=== PATIENT | male | born 1945 | race Caucasian/White ===

== ENCOUNTER 2023-08-21 08:16 | Inpatient (IN) | payer MEDICARE, SELFPAY ==
[2023-08-21] VITALS (203 sets, daily range): BP systolic 67–134; BP diastolic 20–89; PULSE 56–123; RESP 12–38; TEMP 36.6–38.3; O2SAT 88–100
--- NOTE | 2023-08-21 08:00 | RT.EKG_ITS ---
APPROVED REPORT Exam: Resting ECG Reason for Exam: SOB Patient Location: E HR:101 bpm ECG Measurements Heart Rate 101 AXIS LA 131 P 51 QRSd 92 QRS 40 QT 331 T 34 QTc 429 Conclusion Sinus tachycardia...rate> 99 Ventricular premature complex...V complex w/ short R-R interval Aberrant conduction of SV complex(es)...aberrant shape, LA 80-220 Probable left atrial enlargement...P >50mS, <-0.10mV V1
--- NOTE | 2023-08-21 08:15 | DI.CT_ITS ---
Exam(s) CT THORAX ABD/PEL CTA EXAM: CT THORAX ABD/PEL CTA CLINICAL HISTORY: chest paijn, sob, upper abd pain. TECHNIQUE: Imaging Protocol: Axial CT angiography was performed with multi-slice acquisition and m ulti-planar and/or 3D reconstructions. CONTRAST MATERIAL: Intravenous: Omnipaque 350 contrast volume:100 mL Oral: No COMPARISON: No exams were available for comparison FINDINGS: The examination is limited due to patient motion artifact. CHEST: Tracheobronchial tree: Patent where visualized. Pulmonary parenchyma: Mild centrilobular emphysematous changes are present. Atelectatic changes are seen in the dependent portions of the lungs. There is an infiltrate seen in the posterior aspect of the right lower lobe. There is also an infiltrate seen in the left lower lobe. There is scarring se en in the right upper and right middle lobes. Pulmonary Arteries: No evidence of filling defect to suggest pulmonary emboli. Mediastinum and Erinn: No dominant adenopathy or fluid collection. The esophagus is unremarkable. Visualized thyroid: Unremarkable. Pleura: There are small bilateral pleural effusions. No pneumothoraces are identified. Heart: Cardiomegaly. Coronary artery calcifications are present. No pericardial effusion. Aorta: Thoracic aorta non-dilated. No evidence of dissection. Atherosclerotic calcification is prese nt. Soft Tissues: Mild gynecomastia. Bones: Within normal limits for the patient's age. ABDOMEN AND PELVIS: Abdomen: Celiac axis/mesenteric arteries: No evidence of occlusion or significant stenosis. Atherosclerotic c alcification is seen at the origins of the celiac axis and superior mesenteric artery. Renal Arteries: No evidence of occlusion or significant stenosis. There is atherosclerosis seen at t he origins of the renal arteries, left greater than right. Aorta: The patient has an infrarenal abdominal aortic aneurysm measuring 4.9 x 5.3 cm. There is mur al thrombus present. There is no evidence of dissection. Pelvis: Iliac Arteries: No evidence of occlusion or significant stenosis. Atherosclerotic calcification is noted. Common Femoral Arteries: No evidence of occlusion or significant stenosis. Atherosclerotic calcific ation is present. ABDOMEN: Liver: There is heterogeneous enhancement of the liver suggesting fatty infiltration. The liver is en larged. No measurable mass. Gallbladder and Biliary Tract: Gallbladder is contracted there do appear to be stones within the gall bladder (series 12, image 600). There is no biliary ductal dilatation. Pancreas: The pancreas is heterogeneous in enhancement particularly involving the head and proximal b husam. There is a large amount of fluid around the pancreas. No definite focal in capsulated fluid valeria ection is seen to suggest an abscess. Spleen: Normal. Adrenals: No masses seen. Kidneys: Normal size, contour and axis. No radiodense stones or obstructive uropathy. No masses seen. Bowel: There is diverticulosis of the colon without evidence of acute diverticulitis. There is no thelma dence of bowel obstruction or bowel wall thickening. There is a small air collection superior to the proximal duodenum which may represent a a diverticulum. Ulcer cannot be entirely excluded. There is n o evidence of appendicitis. Peritoneal Cavity: There is a small amount of perisplenic ascites. There is a small to moderate amoun t of pelvic ascites. No free air. Lymph Nodes: Within normal limits. Bones: Within normal limits for the patient's age. Soft Tissues: There is a small right inguinal hernia containing an unremarkable loop of bowel. There is a small fat containing paraumbilical hernia. There is mild subcutaneous edema in the abdominal wal l. PELVIS: Bladder: A Webb catheter is seen in the decompressed urinary bladder. There is air seen in the depen dent portion of the urinary bladder likely reflecting recent catheterization. Reproductive Organs: Unremarkable as visualized. Lymph Nodes: Within normal limits. Bones: Within normal limits for the patient's age. IMPRESSION: 1. Heterogeneous pancreas with a large amount appear appear created fluid. The findings are suspiciou s for acute pancreatitis. Due to the heterogeneity of the pancreas, necrotizing pancreatitis cannot b e considered. No focal fluid collection is seen to suggest an abscess. 2. Small to moderate amount of abdominal ascites. 3. Small bilateral pleural effusions and subjacent infiltrates which may represent atelectasis or pne umonia. 4. Small air collection superior to the proximal duodenum which may represent a diverticulum. Ulcer c annot be entirely excluded. 5. No evidence of a pulmonary embolism or thoracic aortic dissection. 6. Infrarenal abdominal aortic aneurysm without evidence of dissection. 7. Findings were discussed with Dr. Mcmanus at 11 a.m. on 08/21/2023. RADIATION DOSE DELIVERED: 1,214.7mGy.cm Total DLP DATA REPOSITORY: All CT scans at this facility are submitted to the National Radiology Data Registry (NRDR) Dose Index Registry (DIR) with the [employer] (ACR). RADIATION OPTIMIZATION: All CT scans at this facility use at least one of these dose optimization te chniques: automated exposure control; mA and/or kV adjustment per patient size (includes targeted exa ms where dose is matched to clinical indication); or iterative reconstruction.
[2023-08-21] MEDS: Lactated Ringers 500 ML 1000 ML IV ×2 (08:25→13:22)
[2023-08-21 08:26] LABS: HCT 36.4 % (40.0-50.0); HGB 12.5 g/dL (13.5-17.5); MCH 31.3 pg (27.0-33.0); MCHC 34.3 % (32.0-36.0); MCV 91 fL (80-95); MPV 10.5 fL (8.0-11.0); Platelet Count 225 10^3/uL (130-400); RBC 3.99 10^6/uL (4.36-5.78); RDW 12.4 % (11.8-14.1); RDW-SD 41.9 fL; WBC 8.43 10^3/uL (4.4-10.8)
--- NOTE | 2023-08-21 08:30 | W.ED.GENAD ---
Discharge Plan Disposition Patient Disposition: Admit to [facility] Condition: Critical Discharge Details Clinical Impression: Septic shock, Pancreatitis, Pneumonia Admit Date/Time: 08/21/23 11:57 Admit Provider: Tommy Meier Attending Provider: Tommy Meier Primary Care Provider: Joe Mckinnon ED Provider: Ryan Mcmanus [facility] General Mode of arrival: ambulatory. Date/Time Provider Initiated Documentation: 08/21/23 08:19. Limitations to Documentation: altered mental status. Information obtained by: patient and EMS. HPI Narrative: 77-year-old male with multimedical problems including history of pancreatitis with necrosis, supraventricular tachycardia, Parkinson's disease, hyperlipidemia, COPD, hypertension, tobacco use, aortic aneurysm, here with chief complaint of chest pain. Patient notes dull chest pain developed around 730 this morning and has persisted. Pain is severe. He has associated shortness of breath. Patient was hypoxic per EMS and started on 3 L of oxygen. He does have a history of obstructive sleep apnea and COPD but is not typically on oxygen. Patient also notes upper abdominal pain. Related Data Home Medications Medication Instructions Recorded Confirmed acetaminophen 325 mg capsule 325 mg PO ONCE PRN 08/21/23 08/21/23 aspirin 81 mg tablet,delayed 81 mg PO DAILY 08/21/23 08/21/23 release atorvastatin 10 mg tablet 10 mg PO DAILY 08/21/23 08/21/23 bisoprolol fumarate 5 mg tablet 5 mg PO DAILY 08/21/23 08/21/23 hydromorphone 2 mg tablet 2 mg PO Q4H PRN 08/21/23 08/21/23 (Dilaudid) lisinopril 10 mg tablet 10 mg PO DAILY 08/21/23 08/21/23 Allergies Allergy/AdvReac Type Severity Reaction Status Date / Time No Known Allergies Allergy Unverified 08/21/23 11:14 General Stated Complaint: Chest Pain SANDIP: 2 Review of Systems All systems reviewed & are unremarkable except as noted in HPI and below Constitutional Constitutional: Denies fever(s) Cardiovascular Cardiovascular: Reports as per HPI Gastrointestinal Gastrointestinal: Reports as per HPI Exam Const General: cooperative and uncomfortable Orientation: alert, awake, oriented to person, oriented to time and confused HENMT Mouth: mucous membranes dry Eyes Conjunctivae: normal conjunctivae Sclera: normal sclerae EOM: EOM intact bilaterally Neck Neck: trachea midline and supple Resp Auscultation: clear to auscultation bilaterally, diminished lung sounds, no rales, no rhonchi and no wheezes Cardio Rate: tachycardic Rhythm: regular rhythm GI Inspection: distended Palpation: soft, not firm, no guarding, no masses, not rigid and tender in the epigastrum Skin General skin exam: no rashes or lesions noted Neuro General: patient alert, patient awake, oriented Patient Orientation: Person and Confused and tone normal Other: Page equally Extrem General: no edema Course Vital Signs Vital signs: Vital Signs Temperature 38.3 C H 08/21/23 08:10 Pulse 99 H 08/21/23 08:10 Respiratory Rate 36 H 08/21/23 08:10 Blood Pressure 87/31 L 08/21/23 08:10 Pulse Oximetry 95 08/21/23 08:10 Temperature 38.3 C H 08/21/23 08:10 Temperature Source Temporal Artery Scan 08/21/23 08:10 Pulse 99 H 08/21/23 08:10 Respiratory Rate 34 H 08/21/23 08:19 Respiratory Effort Short of Breath 08/21/23 08:19 Respiratory Depth Deep 08/21/23 08:19 Respiratory Pattern Irregular 08/21/23 08:19 Blood Pressure 87/31 L 08/21/23 08:10 Pulse Oximetry 95 08/21/23 08:10 Oxygen Delivery Method Nasal Cannula 08/21/23 08:10 Oxygen Flow Rate 2.5 08/21/23 08:10 Pain Level 5 08/21/23 08:10 Procedures Central Line Placement Right IJ: Time Out Performed: Yes Patient Placed on Monitor/Pulse Ox: Yes MD Prep: mask, gown and gloves Central Line Prep: Chlorhexidine scrub and sterile drapes applied Local Anesthetic: Lidocaine 1% Amount of anesthesia used (mL): 2 Ultrasound Used for Placement: Yes Central Line Lumen Inserted: triple Post Procedure: good blood return, all ports aspirated, flushed, capped and sutured in place with 3-0 nylon Post Procedure X-Ray: tip of catheter in good position Patient Tolerated Procedure: well Complications: none Medical Decision Making 834?-77-year-old male with multiple medical problems including history of COPD, hypertension, hyperlipidemia, pancreatitis, abdominal aneurysm, here with retrosternal chest pain and shortness of breath with hypoxia as well as upper abdominal pain since 730 this morning. Concern for ACS. EKG was reviewed and interpreted by me: Sinus tachycardia 101 bpm, PVCs noted, some artifact. Will check troponin. Concern for acute CHF and will check BNP. Consider acute thoracic dissection and pulmonary embolism. Plan to obtain CT of the chest. Given upper abdominal pain and history of abdominal aneurysm and pancreatitis were also obtain CTA of the abdomen and pelvis. Consider acute pancreatitis. I will check LFTs and lipase. Patient is hypotensive and tachycardic. I will give IV fluid bolus and plan to reassess closely. 930 -- Patient more hypotensive despite IV fluid bolus. Systolic in the 60s. Patient mentation unchanged. Second IV has been established and norepinephrine infusion ordered. Initial labs reviewed: Lactic acidosis noted. No leukocytosis. Creatinine 1.4 but normal GFR. Transaminitis noted. Mildly elevated lipase. BNP elevated. Initial troponin negative. Plan to proceed with CT imaging at this time. Discussed resuscitation status with the patient: Requests CPR, no ventilator. --Patient reassessed multiple times and norepinephrine infusion titrated up. 1130 --Central line was placed right IJ without complications. CTA of the thorax, abdomen pelvis interpreted by radiology:1. Heterogeneous pancreas with a large amount appear appear created fluid. The findings are suspicious for acute pancreatitis. Due to the heterogeneity of the pancreas, necrotizing pancreatitis cannot be considered. No focal fluid collection is seen to suggest an abscess. 2. Small to moderate amount of abdominal ascites. 3. Small bilateral pleural effusions and subjacent infiltrates which may represent atelectasis or pneumonia. 4. Small air collection superior to the proximal duodenum which may represent a diverticulum. Ulcer cannot be entirely excluded. 5. No evidence of a pulmonary embolism or thoracic aortic dissection. 6. Infrarenal abdominal aortic aneurysm without evidence of dissection. Plan to initiate treatment with broad-spectrum antibiotic coverage for potential pneumonia Zosyn and azithromycin IV. Portable chest x-ray postcentral line placement reviewed and interpreted by me: Adequate central line placement, no pneumothorax. Plan for hospitalization for continued treatment. Hospitalist has been paged. [id number] --nursing continues to titrate norepinephrine. Patient has received 2 L IV fluid bolus. Norepinephrine now at 30 mcg/min to maintain MAP at 65. Patient's family now at bedside including his sister -they note patient recently hospitalized at [facility] [place] for sepsis with pneumonia and pancreatitis. Family interested in being kept up-to-date regarding hospital course and discharge planning. I called and spoke with Dr. Ornelas, on-call hospitalist, discussed ED presentation course, he will admit the patient to the ICU. I am attempting to obtain outside hospital records from [facility] [place]. Quality:[facility] Health Related Social Needs: No Data to Display Critical Care Time Critical Care Time Critical Care Time: Yes Total Critical Care Time: 50 Attestation: I spent greater than 50 minutes addressing this patient's immediate life threats. Please see MDM section of note. This time was spent engaged in work directly related to the patient's care, exclusive of separate procedures, and failure to initiate these interventions would have likely resulted in clinically significant or life threatening deterioration in the patient's condition. PFSH All Active Problems (Updated 08/21/23 @ 12:59 by EMIGDIO HUNT) Pneumonia (Acute) Pancreatitis (Chronic) Septic shock (Acute) Social History Smoking/Tobacco Use Status: Current-Occasional Smoking risk assessment performed?: Yes Alcohol Intake: never Drug use: Never Substance use type: does not use Housing: assisted living facility
[2023-08-21 08:40] LABS: Absolute Lymphocyte Count 0.42 10^3/uL (1.2-3.4); Absolute Monocyte Count 0.08 10^3/uL (0.1-0.8); Absolute Neutrophil Count 7.92 10^3/uL (1.2-6.7); Bands % 5 %
[2023-08-21 08:41] LABS: Diff Comment Manual Differential; RBC Morphology Normal
[2023-08-21 08:48] LABS: Lactate 2.7 mmol/L (0.6-1.4)
[2023-08-21] MEDS: Normal Saline Flush 10 ML SYR IVP ×2 (08:56→22:55)
[2023-08-21 08:58] LABS: ALT 64 U/L (16-63); AST 96 U/L (15-37); Albumin 1.8 g/dL (3.4-5.0); Alkaline Phosphatase 130 U/L (46-116); Anion Gap 13.2 mmol/L (3-11); BUN 31 mg/dL (7-18); Bilirubin, Total 1.5 mg/dL (0.2-1.0); CO2 22.8 mmol/L (21.0-32.0); CREATININE 1.4 mg/dL (0.70-1.30); Calcium 7.8 mg/dL (8.5-10.1); Chloride 97 mmol/L (98-107); Estimated GFR 52.41 (mL/min/1.73m2); Glucose 107 mg/dL (74-106); NT-proBNP 493 pg/mL (<300); Potassium 3.6 mmol/L (3.5-5.1); Sodium 133 mmol/L (136-145); Total Protein 6.3 g/dL (6.4-8.2); Troponin I < 50 ng/L (< or =60)
[2023-08-21] MEDS: Norepinephrine in D5W 8 MG/250 ML BAG 9.375 MG IV (09:13)
[2023-08-21 09:17] LABS: Lipase 85 U/L (16-77)
[2023-08-21 09:19] LABS: COVID-19 PCR Negative (Negative); Influenza A PCR Negative (Negative); Influenza B PCR Negative (Negative); RSV PCR Negative (Negative); Source Nasopharynx
[2023-08-21] MEDS: Normal Saline - Diluent 50 ML VIAL IJ (09:46)
[2023-08-21] MEDS: Omnipaque 350 MG/ML 100 ML BTL IJ (09:47)
--- NOTE | 2023-08-21 11:16 | DI.RAD_ITS ---
Exam(s) XR PORTABLE CHEST AP EXAM: XR PORTABLE CHEST AP CLINICAL HISTORY: post line TECHNIQUE: 2D digital imaging was performed of the chest. One image was obtained. An AP view was ob tained. COMPARISON: CT CT THORAX ABD/PEL CTA from 08/21/2023 FINDINGS: MEDIASTINUM: Normal. HEART: Normal. PULMONARY VASCULATURE: Normal. LUNGS: The bilateral basilar infiltrates seen on the CT scan from the same day are present. PLEURAL SPACE: No pleural effusion or pneumothorax. BONE:Within normal limits for the patient's age. OTHER FINDINGS:There has been interval placement of a right internal jugular catheter. The tip of th e catheter is in good position near the cavoatrial junction. IMPRESSION: 1. Interval placement of a right IJ catheter. The tip is in good position at the cavoatrial junction . No pneumothorax is identified. 2. Bilateral basilar infiltrates as seen on the CT scan from the same day. DATA REPOSITORY: RADIATION DOSE DELIVERED:
[2023-08-21] MEDS: AZITHROMYCIN 500 MG in Normal Saline 250 ML 250 MG IVPB (11:24)
[2023-08-21] MEDS: PIPERACILLIN/TAZO 4.5 GM in Normal Saline 100 ML IVPB (11:25)
[2023-08-21 12:16] LABS: Bilirubin Moderate (Negative); Blood Negative (Negative); Clarity Cloudy (Clear); Glucose 100 mg/dL (Negative); Ketones 15 mg/dL (Negative); Leukocyte Esterase Negative (Negative); Nitrite Negative (Negative); Specific Gravity >= 1.030 (1.005-1.025)
[2023-08-21 12:35] LABS: Lactate 1.5 mmol/L (0.6-1.4)
[2023-08-21 12:35] LABS: Bacteria Few HPF (Negative); Crystals Moderate Amorphous HPF (Negative); Epithelial Cells Few HPF (Negative); Mucus Moderate (Negative); Other Cells Few Renal (Negative); RBC 0-2 HPF (0-2)
[2023-08-21 12:36] LABS: C & S Indicated? No; Casts 3-5 Hyaline LPF (Negative)
[2023-08-21 12:57] LABS: Troponin I < 50 ng/L (< or =60)
[2023-08-21 13:08] LABS: HDL Cholesterol 12 mg/dL (40-60); Triglyceride 57 mg/dL (<150)
[2023-08-21 13:09] LABS: Cholesterol <60 mg/dL (<200)
[2023-08-21 13:22] LABS: LDL CHOLESTEROL 7 mg/dL (<100)
[2023-08-21] MEDS: Norepinephrine in D5W 8 MG/250 ML BAG 56.25 MG IV (14:00)
--- NOTE | 2023-08-21 14:09 | W.PM.HP.N ---
Date of service: 08/21/23 Time of Service: 14:10 Assessment and Plan Assessment and plan (1) Necrotizing pancreatitis: Status: Acute Assessment and plan: patient has evidence of gallstones in his GB but GB is not dilated and there is no ductal dilatation. Patient had similar presentation w/ acute abdominal pain, dyspnea shock, CHARANJIT, during his most recent hosptital stay. I suspect he has been intermittently passing gallstones. He states he has not drank any alcohol in 10 yrs, although formerly was heavy drinker. We can ascertain that he at least has not had any alcohol since hospitalized on 08/11/2023. At this point he has evidence of necrotizing pancreatitis w/out focal abscess. Goals at this point are to stabilize hemodynamically while using empiric antibiotics for biliary tract source of sepsis.I doubt his source of sepsis is pneumonia and in fact his bibasilar infiltrates may be residual from his recent pneumonia and/or atelectasis. I have put him on iv fluids after intial resuscitation of 2 liters in the ED and another 1 liter of LR in the ICU, will have nursing titrate norepinephrine, vasopressin was added as the patient was still borderline hypotensive (SBP in 90's to low 100's) on N.E. at 25 mgc/minute. BP now stabilized into the 120's. When hemodynamically stable and off vasopressor, consider referral for ERCP or could repeat MRCP here. I think once he has stabilized then he should have cholecystectomy to prevent this from happening again. I have continued his Zosyn and added Vancomcyin but have not continued his azithromycin given in the E.D. as I do not think this is primarily a pneumonia causing his sepsis. Critical care time spent interviewing and examining the patient, reviewing studies, discussing case with patient's nurse and consulting physicians was 70 minutes (2) Gall stone pancreatitis: Status: Acute (3) Septic shock: Status: Acute Assessment and plan: iv fluids and vasopressors as above, corticosteroids, broad spectrum antibiotic coverage w/ Zosyn and Vancomcyin (4) Acute kidney injury (nontraumatic): Status: Acute Assessment and plan: stabilize hemodynamics and optimized volume. monitor urine output, madsen placed. (5) Transaminitis: Status: Acute Assessment and plan: patient had acute elevation of his bilirubin and transaminases during recent hospitalization associated w/his pancreatitis which had been improving on 08/16 (alk phos 94, AST 36, ALT 58, total bili 1.2), therefore his current elevation is acute and given his presentation w/ sepsis picture, it seems likely that he had another acute gallstone attack causing pancreatitis. I will check abdomiinal US tomorrow but when feasible will arrange MRCP or discuss w/ [facility] [place]CP and if negative then will need cholecystectomy to prevent further attacks. (6) Atelectasis of both lungs: Status: Acute Assessment and plan: acapella and IS, prn DuoNeb treatments (7) Pneumonia: Status: Suspected Assessment and plan: I have ordered sputum for gram stain and C&S, but doubt this is the cause for his sepsis; nevetheless, Zosyn and Vancomycin are more than adequate coverage. Qualifiers: Pneumonia type: due to unspecified organism Laterality: bilateral Lung location: lower lobe of lung Qualified Code(s): J18.9 - Pneumonia, unspecified organism (8) COPD (chronic obstructive pulmonary disease): Assessment and plan: supportive care w/ supplemental oxygen, prn nebulizers. Qualifiers: COPD type: emphysema Emphysema type: centrilobular Qualified Code(s): J43.2 - Centrilobular emphysema (9) Abdominal aortic aneurysm: Assessment and plan: stable 5.2 cm AAA infrarenal Qualifiers: Abdominal aorta location: infrarenal aorta Presence of rupture: without rupture Qualified Code(s): I71.43 - Infrarenal abdominal aortic aneurysm, without rupture History of Present Illness History of Present Illness Chief Complaint: abdominal pain, dyspnea Narrative: 77 yr old male w/ PMH of COPD (not on home oxygen), TRAVIS, 5.2 cm AAA, HLD, HTN who was recently hospitalized at [facility] ([facility]) 08/10-08/17/23 and treated for pneumonia and pancreatitis. He was sent from [facility] to [facility]. At [facility] he was admitted for gallstone pancreatitis and septic shock. He was found to have necrotizing pancreatitis but no focal abscess or gas in the pancreas and while the GB had stones, his MRCP did not show any biliary obstruction. His hospital stay was complicated by CAP, hypoxemic respiratory failure, and PSVT, CHARANJIT from urinary retention. Patient relates he had similar episode of RUQ abdominal pains about one year ago which he did not seek medical treatment and it resolved after a few days. During his hospitalization at [facility] he did present w/ PSVT treated w/ adenosine, he had hypotension d/t combination of sepsis and hypovolemic shock and required norepinephrine, was treated w/ Ceftriaxone and flagly. When he became hemodynamically stable he underwent MRCP which did Not show any biliary obstruction. He had a subsequent repeat CT scan of the abdomen pelvis to ensure that there is no formation of pseudocyst or abscess. He was eventually discharged to [facility] on 08/17/2023. Today presents emergency department with acute epigastric abdominal pain, shortness of breath and substernal chest pain. Patient reportedly was hypoxemic on EMS arrival to [facility] started a month 3 L/min per nasal cannula. Patient underwent a CT of the chest abdomen pelvis which demonstrated heterogeneous pancreas with large amount of peripancreatic fluid no focal fluid collection to suggest an abscess. He has moderate amount of ascites small bilateral pleural effusions and subjacent infiltrates at the bases consistent with atelectasis versus pneumonia but no evidence of pulmonary embolism and no evidence of thoracic aortic dissection. He has a stable infrarenal abdominal aortic aneurysm without dissection. Fred arrival to the emergency department he was hypotensive with systolic pressure 87 diastolic pressure in the 30s. Patient was given 2 L of fluids IV boluses he remained hypotensive and required initiation of norepinephrine drip which was titrated up to 25 mcg/min. Blood pressures are finally brought up into the low 100s about an hour after arrival but continued to require titration of the norepinephrine. Blood cultures were obtained routine labs were obtained and patient was begun on antibiotics including Zosyn and azithromycin. Labs demonstrated mild anemia hemoglobin 12.5 g hematocrit 36% normal white count 8400 normal platelet count 2 and 25,000 blood lactate was elevated at 2.7 and after 2 L of fluid repeat level was 1.5 serial troponin levels were obtained and initial 1 was less than 50 at 817 this morning repeat level at 1225 this afternoon was again less than 50. Lipid panel was obtained and triglycerides were normal at 57 lipase was mildly elevated at 85 his chemistry profile showed azotemia with a BUN of 31 creatinine 1.4 and elevated transaminases and elevated total bilirubin. GB was 1.5 AST 96, ALT 64, alkaline phosphatase 130. Albumin is low at 1.8. Urinalysis was remarkable for ketones 50 mg/dL protein 100 mg/dL and specific gravity greater than 1030 with moderate bilirubin as well as hyaline casts and a few renal epithelial cells. Hospital service was requested to admit the patient to the ICU for treatment of necrotizing pancreatitis and pneumonia. I spoke with Dr. Dimas Carranza from general surgery service and requested surgical consultation as well as placement of A line after I made an unsuccessful attempt at placement of A line. Vasopressin has been added to his regiment and now he has become hemodynamically stable. Review of Systems All systems reviewed & are unremarkable except as noted in HPI and below PFSH All Active Problems (Updated 08/21/23 @ 19:20 by Tommy Meier MD) Atelectasis of both lungs (Acute) Gall stone pancreatitis (Acute) Transaminitis (Acute) Acute kidney injury (nontraumatic) (Acute) Necrotizing pancreatitis (Acute) Tobacco dependence (Acute) Pancreatitis (Chronic) Septic shock (Acute) Medical History (Updated 08/21/23 @ 19:20 by Tommy Meier MD) Parkinsonism PSVT (paroxysmal supraventricular tachycardia) PTSD (post-traumatic stress disorder) Obstructive sleep apnea Depression Hyperlipidemia COPD (chronic obstructive pulmonary disease) Abdominal aortic aneurysm Social History Smoking/Tobacco Use Status: Current-Occasional Smoking risk assessment performed?: Yes Alcohol Intake: never Drug use: Never Substance use type: does not use Housing: other Meds Allergies and Home Medications Allergies Allergy/AdvReac Type Severity Reaction Status Date / Time No Known Allergies Allergy Unverified 08/21/23 11:14 Home Medications Medication Instructions Recorded Confirmed Type acetaminophen 325 mg capsule 325 mg PO ONCE PRN 08/21/23 08/21/23 History aspirin 81 mg tablet,delayed 81 mg PO DAILY 08/21/23 08/21/23 History release atorvastatin 10 mg tablet 10 mg PO DAILY 08/21/23 08/21/23 History bisoprolol fumarate 5 mg tablet 5 mg PO DAILY 08/21/23 08/21/23 History hydromorphone 2 mg tablet 2 mg PO Q4H PRN 08/21/23 08/21/23 History (Dilaudid) lisinopril 10 mg tablet 10 mg PO DAILY 08/21/23 08/21/23 History Exam Narrative Exam Narrative: Alert and oriented x4, he has ashen damon appearance to his skin HEENT: Atraumatic normocephalic, pupils equally round reactive to light and accommodation, extraocular motion intact, nares moist and patent without exudate or bleeding, oropharynx noninjected without exudate, teeth in fair repair Neck: Supple, nontender, no lymphadenopathy or JVD. Normal carotid pulses Lungs: Clear to auscultation and percussion Heart: Regular rate and rhythm without murmur rub or gallop. Normal apical impulse Abdomen: Nondistended, normal bowel sounds,tender to palpation in epigastrium, no involuntary guarding or rebound tenderness, palpably enlarged liver, no palpable splenomegaly, aorta is palpable and has bruit Extremities: Normal range of motion with normal strength. No peripheral cyanosis or edema, extremities warm and dry. Normal pulses, capillary refill is delayed > 3 seconds Neurologic: Cranial nerves II through XII grossly within normal limits. Normal strength and sensation over the face trunk and extremities. Results Labs 08/21/23 08:17 08/21/23 08:17 Labs: Laboratory Results - last 24 hr 08/21/23 08/21/23 08/21/23 08:13 08:17 08:42 WBC 8.43 RBC 3.99 L Hgb 12.5 L Hct 36.4 L MCV 91 MCH 31.3 MCHC 34.3 RDW 12.4 Plt Count 225 MPV 10.5 Immature Gran % 0.0 Neutrophils % 89.0 Band Neutrophils % 5 Lymphocytes % 5.0 Monocytes % 1.0 Eosinophils % 0.0 Basophils % 0.0 Nucleated RBC % 0.0 Absolute Neutrophils 7.92 H Absolute Lymphocytes 0.42 L Absolute Monocytes 0.08 L Absolute Eosinophils 0.00 Absolute Basophils 0.00 RBC Morphology Normal VBG Lactate 2.7 H* Sodium 133 L Potassium 3.6 Chloride 97 L Carbon Dioxide 22.8 Anion Gap 13.2 H BUN 31 H Creatinine 1.4 H Est GFR (CKD-EPI 2020) 52.41 Glucose 107 H Calcium 7.8 L Magnesium 2.0 Total Bilirubin 1.5 H AST 96 H ALT 64 H Alkaline Phosphatase 130 H Troponin I < 50 NT-Pro-B Natriuret Pep 493 H Total Protein 6.3 L Albumin 1.8 L Triglycerides Total Cholesterol LDL Cholesterol Direct LDL Cholesterol, Calc HDL Cholesterol Lipase 85 H Urine Color Urine Clarity Urine pH Ur Specific [place] Urine Protein Urine Ketones Urine Blood Urine Nitrite Urine Bilirubin Urine Urobilinogen Ur Leukocyte Esterase Urine RBC Urine WBC Ur Epithelial Cells Urine Crystals Urine Bacteria Urine Casts Urine Mucus Urine Other Ur Culture Indicated? Urine Glucose COVID-19 Source Nasopharynx SARS-CoV-2 (PCR) Negative Influenza Type A (PCR) Negative Influenza Type B (PCR) Negative RSV (PCR) Negative 08/21/23 08/21/23 08/21/23 09:35 12:25 12:35 WBC RBC Hgb Hct MCV MCH MCHC RDW Plt Count MPV Immature Gran % Neutrophils % Band Neutrophils % Lymphocytes % Monocytes % Eosinophils % Basophils % Nucleated RBC % Absolute Neutrophils Absolute Lymphocytes Absolute Monocytes Absolute Eosinophils Absolute Basophils RBC Morphology VBG Lactate 1.5 H Sodium Potassium Chloride Carbon Dioxide Anion Gap BUN Creatinine Est GFR (CKD-EPI 2020) Glucose Calcium Magnesium Total Bilirubin AST ALT Alkaline Phosphatase Troponin I < 50 NT-Pro-B Natriuret Pep Total Protein Albumin Triglycerides 57 Total Cholesterol <60 LDL Cholesterol Direct 7 LDL Cholesterol, Calc TNP HDL Cholesterol 12 L Lipase Urine Color Dark Yellow Urine Clarity Cloudy Urine pH 5.0 Ur Specific [place] >= 1.030 H Urine Protein 100 H Urine Ketones 15 H Urine Blood Negative Urine Nitrite Negative Urine Bilirubin Moderate H Urine Urobilinogen 2.0 H Ur Leukocyte Esterase Negative Urine RBC 0-2 Urine WBC 3-5 Ur Epithelial Cells Few Urine Crystals Moderate Amorphous Urine Bacteria Few Urine Casts 3-5 Hyaline Urine Mucus Moderate Urine Other Few Renal Ur Culture Indicated? No Urine Glucose 100 H COVID-19 Source SARS-CoV-2 (PCR) Influenza Type A (PCR) Influenza Type B (PCR) RSV (PCR) Last Vital Signs Temp 36.6 C 08/21/23 13:30 Pulse 68 08/21/23 13:30 Resp 19 08/21/23 13:30 BP 100/55 L 08/21/23 13:30 Pulse Ox 95 08/21/23 13:30 Time Spent Time spent with Patient: 55-74 minutes Time was spent: preparing to see the patient(eg.review tests), obtaining and/or reviewing separately otained hiistory, ordering medications,tests, procedures, referring, communicating with other health childcare attendant, indepentently interpreting results, counseling the patient and care coordination
--- NOTE | 2023-08-21 15:32 | W.PM.OP ---
Date of service: 08/21/23 Time of Service: 15:32 Operative Note Operative Note DATE OF PROCEDURE: 08/21/23 PRE-OP DIAGNOSIS: septic shock, necrotizing pancreatitis POST-OP DIAGNOSIS: same SURGEON: Tommy Meier ANESTHESIA TYPE: Local By Surgeon ESTIMATED BLOOD LOSS: 5 (mL) COMPLICATIONS: None Patient was transported to: no change Patient's condition: critical Indications: septic shock requiring intravenous vasopressors Procedure Description: After obtaining written and informed consent for placement of a right radial arterial catheter I performed a modified Didier's test on the right hand and ascertained that he had good peripheral collateral blood flow through the ulnar arter
[2023-08-21] MEDS: VASOPRESSIN 50 UNITS in Normal Saline 497.5 ML 18 UNITS IV (17:14)
--- NOTE | 2023-08-21 17:16 | SCONE_ITS ---
Date of service: 08/21/23 Time of Service: 17:16 Assessment and Plan Assessment and plan (1) Necrotizing pancreatitis: Status: Acute Assessment and plan: Medhat seems to have quite severe pancreatitis, and signs of septic shock that raise a concern next to pancreatitis. At this point, I agree that broad- spectrum antibiotics, and aggressive resuscitation are paramount to his recovery. And while I agree that interval cholecystectomy should be considered to help reduce the likelihood of recurrent pancreatitis, given the extent of the inflammation around his pancreas at this time I do not think it would be at all safe to proceed. For now, we will continue with basic measures and progressive pancreatitis treatment. I will plan to repeat a CAT scan in about 48 to 72 hours to see if there is any signs of peripancreatic or pancreatic abscess that might require drainage. If that is the case, almost certainly a transfer to a facility with interventional radiology, and advanced surgical options if they are necessary. Otherwise, once he is pain-free and demonstrates significant improvement of the pancreatic inflammation, then we could give stronger consideration to interval cholecystectomy. I would also repeat LFTs tomorrow. If there are any indicators of obstructive jaundice, then MRCP would be necessary to triage the common bile duct. History of Present Illness History of Present Illness Chief Complaint: Abdominal pain Narrative: Medhat is 77 years old. He comes to the emergency department today from [facility] and rehab. His chief complaint is chest and abdominal pain, with some exertional dyspnea and hypoxemia. Although he cannot recall many of the details, this seems to have started around the beginning of this month. He had acute onset of midepigastric abdominal pain, it was not associated with any particular meal or any changes in activity. This was associated with some shortness of breath. He was evaluated and admitted to with a diagnosis of pancreatitis. As best I can tell the presumptive source of the pancreatitis was gallstones. He was admitted to from the third through the when he was discharged to [facility] and rehab. It is unclear to me why the gallbladder was not removed during that hospital stay, but I suppose it could have been because his comorbidities, and deconditioned status. Regardless, he was noted to have some hypoxemia at the rehabilitation center, and was transferred over to the emergency department with an oxygen requirement and chest and abdominal pain. He underwent a CT scan here that shows severe pancreatitis. He was hypotensive with septic shock, started on broad-spectrum antibiotics, and resuscitated with plasma expansion in the form of crystalloids. While in the intensive care unit, he says he is feeling better. He continues to complain of abdominal pain, but is better than before. He denies any nausea, but he also does not have much appetite. Says his breathing is improved. Review of Systems Constitutional Constitutional: Denies body ache(s), Reports fatigue, Denies fever(s), Reports poor appetite and Reports weakness Eyes Eyes: Reports system reviewed and no additional complaints, except as documented ENT Ears, Nose, Mouth, and Throat: Reports system reviewed and no additional complaints, except as documented Cardiovascular Cardiovascular: Reports chest pain and Reports dyspnea Respiratory Respiratory: Reports chest congestion, Reports cough and Reports dyspnea Gastrointestinal Gastrointestinal: Reports abdominal pain, Denies hematochezia, Denies diarrhea, Reports nausea and Denies vomiting Genitourinary Genitourinary: Reports system reviewed and no additional complaints, except as documented Musculoskeletal Musculoskeletal: Reports back pain Neurologic Neurologic: Reports weakness Psychiatric Psychiatric: Reports system reviewed and no additional complaints, except as documented Endocrine Endocrine: Reports fatigue Hematologic/Lymphatic Hematologic/Lymphatic: Denies easy bleeding and Denies easy bruising PFSH All Active Problems Atelectasis of both lungs (Acute) Gall stone pancreatitis (Acute) Transaminitis (Acute) Acute kidney injury (nontraumatic) (Acute) Necrotizing pancreatitis (Acute) Tobacco dependence (Acute) Pancreatitis (Chronic) Septic shock (Acute) Medical History Parkinsonism PSVT (paroxysmal supraventricular tachycardia) PTSD (post-traumatic stress disorder) Obstructive sleep apnea Depression Hyperlipidemia COPD (chronic obstructive pulmonary disease) Abdominal aortic aneurysm Social History Smoking/Tobacco Use Status: Current-Occasional Smoking risk assessment performed?: Yes Alcohol Intake: never Drug use: Never Substance use type: does not use Housing: other Exam Const General: cooperative, comfortable and no acute distress Nutritional Appearance: average body habitus Orientation: alert, awake and oriented x3 HENMT Head: normal to inspection GI Inspection: non-distended Palpation: guarding and tender Results Last Vital Signs Temp 97.9 F 08/21/23 13:30 Pulse 75 08/21/23 15:46 Resp 19 08/21/23 13:46 BP 123/69 08/21/23 15:46 Pulse Ox 95 08/21/23 14:31 Labs 08/21/23 08:17 08/21/23 08:17 Labs: Laboratory Results - last 24 hr 08/21/23 08/21/23 08/21/23 08:13 08:17 08:42 WBC 8.43 RBC 3.99 L Hgb 12.5 L Hct 36.4 L MCV 91 MCH 31.3 MCHC 34.3 RDW 12.4 Plt Count 225 MPV 10.5 Immature Gran % 0.0 Neutrophils % 89.0 Band Neutrophils % 5 Lymphocytes % 5.0 Monocytes % 1.0 Eosinophils % 0.0 Basophils % 0.0 Nucleated RBC % 0.0 Absolute Neutrophils 7.92 H Absolute Lymphocytes 0.42 L Absolute Monocytes 0.08 L Absolute Eosinophils 0.00 Absolute Basophils 0.00 RBC Morphology Normal VBG Lactate 2.7 H* Sodium 133 L Potassium 3.6 Chloride 97 L Carbon Dioxide 22.8 Anion Gap 13.2 H BUN 31 H Creatinine 1.4 H Est GFR (CKD-EPI 2020) 52.41 Glucose 107 H Calcium 7.8 L Magnesium 2.0 Total Bilirubin 1.5 H AST 96 H ALT 64 H Alkaline Phosphatase 130 H Troponin I < 50 NT-Pro-B Natriuret Pep 493 H Total Protein 6.3 L Albumin 1.8 L Triglycerides Total Cholesterol LDL Cholesterol Direct LDL Cholesterol, Calc HDL Cholesterol Lipase 85 H Urine Color Urine Clarity Urine pH Ur Specific [place] Urine Protein Urine Ketones Urine Blood Urine Nitrite Urine Bilirubin Urine Urobilinogen Ur Leukocyte Esterase Urine RBC Urine WBC Ur Epithelial Cells Urine Crystals Urine Bacteria Urine Casts Urine Mucus Urine Other Ur Culture Indicated? Urine Glucose COVID-19 Source Nasopharynx SARS-CoV-2 (PCR) Negative Influenza Type A (PCR) Negative Influenza Type B (PCR) Negative RSV (PCR) Negative 08/21/23 08/21/23 08/21/23 09:35 12:25 12:35 WBC RBC Hgb Hct MCV MCH MCHC RDW Plt Count MPV Immature Gran % Neutrophils % Band Neutrophils % Lymphocytes % Monocytes % Eosinophils % Basophils % Nucleated RBC % Absolute Neutrophils Absolute Lymphocytes Absolute Monocytes Absolute Eosinophils Absolute Basophils RBC Morphology VBG Lactate 1.5 H Sodium Potassium Chloride Carbon Dioxide Anion Gap BUN Creatinine Est GFR (CKD-EPI 2020) Glucose Calcium Magnesium Total Bilirubin AST ALT Alkaline Phosphatase Troponin I < 50 NT-Pro-B Natriuret Pep Total Protein Albumin Triglycerides 57 Total Cholesterol <60 LDL Cholesterol Direct 7 LDL Cholesterol, Calc TNP HDL Cholesterol 12 L Lipase Urine Color Dark Yellow Urine Clarity Cloudy Urine pH 5.0 Ur Specific [place] >= 1.030 H Urine Protein 100 H Urine Ketones 15 H Urine Blood Negative Urine Nitrite Negative Urine Bilirubin Moderate H Urine Urobilinogen 2.0 H Ur Leukocyte Esterase Negative Urine RBC 0-2 Urine WBC 3-5 Ur Epithelial Cells Few Urine Crystals Moderate Amorphous Urine Bacteria Few Urine Casts 3-5 Hyaline Urine Mucus Moderate Urine Other Few Renal Ur Culture Indicated? No Urine Glucose 100 H COVID-19 Source SARS-CoV-2 (PCR) Influenza Type A (PCR) Influenza Type B (PCR) RSV (PCR) Imaging Abdomen CT scan report/results: report reviewed and image reviewed CT scan - pelvis: report reviewed and image reviewed Procedures Arterial Line Time out performed: Yes Size (Gauge): 20 Technique used: guide wire technique Post-Procedure: line sutured into place and dry sterile dressing placed Patient tolerated procedure: well Complications: pain Site: left and radial
[2023-08-21] MEDS: VANCOMYCIN/WATER (PEG) 2 GM/400 ML BAG IVPB (17:22)
[2023-08-21] MEDS: PIPERACILLIN/TAZO 3.375 GM in Normal Saline 50 ML IVPB (17:22)
[2023-08-21] MEDS: Heparin 5,000 UNITS/ML VIAL 5000 UNITS SC ×2 (17:23→22:54)
[2023-08-21] MEDS: Norepinephrine in D5W 8 MG/250 ML BAG 28.125 MG IV (20:07)
[2023-08-21] MEDS: HYDROmorphone 2 MG/ML SYR IVP (22:54)
[2023-08-22] VITALS (124 sets, daily range): BP systolic 92–157; BP diastolic 54–84; PULSE 47–69; RESP 8–37; TEMP 36.5–37.6; O2SAT 85–99
[2023-08-22] MEDS: PIPERACILLIN/TAZO 3.375 GM in Normal Saline 50 ML IVPB ×4 (01:00→23:46)
[2023-08-22] MEDS: HYDROmorphone 2 MG/ML SYR IVP ×3 (03:50→23:34)
[2023-08-22] MEDS: Heparin 5,000 UNITS/ML VIAL 5000 UNITS SC ×3 (05:12→21:23)
[2023-08-22 05:31] LABS: Abs Immature Grans 0.07 10^3/uL (0.0-0.06); HCT 32.4 % (40.0-50.0); HGB 10.8 g/dL (13.5-17.5); MCH 31.2 pg (27.0-33.0); MCHC 33.3 % (32.0-36.0); MCV 94 fL (80-95); MPV 10.7 fL (8.0-11.0); Platelet Count 231 10^3/uL (130-400); RBC 3.46 10^6/uL (4.36-5.78); RDW 12.5 % (11.8-14.1); RDW-SD 43.3 fL; WBC 10.66 10^3/uL (4.4-10.8)
[2023-08-22 05:54] LABS: ALT 48 U/L (16-63); AST 59 U/L (15-37); Albumin 1.4 g/dL (3.4-5.0); Alkaline Phosphatase 96 U/L (46-116); Anion Gap 9.8 mmol/L (3-11); BUN 24 mg/dL (7-18); Bilirubin, Total 0.8 mg/dL (0.2-1.0); CO2 25.2 mmol/L (21.0-32.0); CREATININE 0.8 mg/dL (0.70-1.30); Calcium 7.6 mg/dL (8.5-10.1); Chloride 101 mmol/L (98-107); Estimated GFR 92.29 (mL/min/1.73m2); Glucose 135 mg/dL (74-106); Lipase 72 U/L (16-77); Potassium 3.4 mmol/L (3.5-5.1); Sodium 136 mmol/L (136-145); Total Protein 5.6 g/dL (6.4-8.2); Vancomycin, Random 10.3 ug/mL
[2023-08-22 06:07] LABS: Absolute Eosinophil Count 0.21 10^3/uL (0.0-0.7); Absolute Lymphocyte Count 0.64 10^3/uL (1.2-3.4); Absolute Monocyte Count 0.96 10^3/uL (0.1-0.8); Absolute Neutrophil Count 8.85 10^3/uL (1.2-6.7); Diff Comment Manual Differential; RBC Morphology Normal
[2023-08-22] MEDS: Lactated Ringers 1,000 ML 100 ML IV (06:38)
--- NOTE | 2023-08-22 07:36 | PUCC_ITS ---
General Date of Service Date of service: 08/22/23 Time of Service: 07:37 Reason for Admission to ICU: Septic Shock Assessment and Plan Assessment and plan (1) Atelectasis of both lungs: Status: Acute (2) Respiratory failure with hypoxia: Status: Acute (3) Necrotizing pancreatitis: Status: Acute (4) Pneumonia: Status: Suspected Qualifiers: Laterality: bilateral Lung location: lower lobe of lung Pneumonia type: due to unspecified organism Qualified Code(s): J18.9 - Pneumonia, unspecified organism (5) Septic shock: Status: Acute (6) Anemia: Status: Chronic (7) Hypokalemia: Status: Acute (8) Hypocalcemia: Status: Acute (9) Hypoalbuminemia: Status: Acute (10) Pulmonary edema: Status: Acute (11) COPD (chronic obstructive pulmonary disease): Assessment and plan: This is a 77 yo with a recently complicated course involving a recent admission to [facility] [place] as outlined above. He has evidence of necrotizing pancreatitis on CT, however this is consistent with his recent prior admission. I do worry that our scan was not compared to the [facility] scans, particularly since there was mention of possible evolving splenic vein thrombosis, which not not mentioned in our CTA. I have requested DI to get the images from [facility] and to compare them for any evolving processes. I recommend changing vanc to Linezolid to avoid iatrogenic renal failure, particularly in the tenuous physiologic condition he is in. On POCUS he appears to have preserved cardiac function (limited by patients intolerance to laying flat) and he appears euvolemic to slightly hypervolemic. There is no benefit in aggressive fluid resuscitation in pancreatitis and more conservation fluid strategies (ie - resuscitation to euvolemia) result in fewer adverse effects. I have stopped the continuous IVF's as the patient is able to toelrate enteral fluids and based on his exam. I do recommend replacing insensible losses, such as from watery diarrhea. I have added stress dose steroids to her regimen. I also instructed nursing not to titrate the vasopressin and work on titrating down the Levophed. The arterial line placed failed after placement so this can be removed. His cuff pressures seem to be accurate and adequate, so I do not feel as though this is a needed re-intervention at this time. Qualifiers: COPD type: emphysema Emphysema type: centrilobular Qualified Code(s): J43.2 - Centrilobular emphysema Recommendations Pulmonary: Hypoxic respiratory failure - likely due to splinting - supplemental O2 with goal 88-92% - incentive spirometer - out of bed to chair - appropriate pain control COPD - no clear signs of exacerbation currently - Afshan QID Cardiac: Pulmonary edema - hold continuous IVF's - recommend replacement of losses with IVF's Distributive shock - continue Zosyn - change vanc to linezolid to preserve kidney function - blood and sputum cultures pending - procalcitonin ordered to compare with [facility] value - Levophed titrate to MAP 65 mmHg - vasopressin to be kept at 0.03 - no titration - no need for art line re-insertion - stress dose steroids added Renal: Electrolyte disturbances - replete to normal - ionized calcium ordered I&O: Intake & Output 08/19/23 08/20/23 08/21/23 08/22/23 23:59 23:59 23:59 23:59 Intake Total 2367.187 / 2367.187 175.313 / 175.313 Output Total 3350 / 3350 1025 / 1025 Balance -982.813 / -982.813 -849.687 / -849.687 Weight 87.7 kg Daily Fluid Goal:: even GI Nutrition: Nutrition - on clear fluids - ok to advance as patient tolerates Necrotizing pancreatitis - antibiotic as above - images from [facility] recommended, DI to addend CTA after comparison with prior images Date of Last Bowel Movement: 08/21/23 Infectious Disease: Pneumonia - antibiotics as above Diarrhea - C. Diff PCR ordered Hematologic: Anemia - monitor Neurologic: No acute concerns Endocrine: No acute concerns Lines: R IJ CVC R arterial line - to be removed as not functional Bocanegra Prophylaxis: Heparin Protonix added given multiple vasopressor use Code Status: Resuscitation Status Full Code Subjective Critical and life-threatening events over the past 24 hours: This is a 77 yo recently admitted to [facility] for gallstone pancreatitis, discharged to rehab and who presented with dyspnea, abdominal pain and found to be in septic shock. His abdominal CT is concerning for severe pancreatitis (no abscess seen), pelvic ascites and a likely pneumonia. At the time of his [facility] admission, he was also in septic shock requiring ICU care. He underwent MRCP on 08/12/23 with no stone seen, so the thought was that the stone had passed which caused the pancreatitis. He was also diagnosed with a bacterial pneumonia and COPD exacerbation and treated for these as well. He was seen briefly by the intensivit at [facility] out of concern for a need for intubation but it was felt as though this was not needed. During the [facility] admission his procalcitonin was over 6 and his lipase was 1800 with normal LFT's. He received an abdominal CT on 08/11 and a repeat on 08/14. On the repeat scan, there was mention of worsening necrotizing pancreatitis with an increase in peripancreatic fluid, stranding and edema as well as increasing edema within the mesenteric root and mesenteric fat. There was new tapering of the splenic verin due to either inflammation versus evolving splenic vein thrombosis. Our CT was not compared to any of the [facility] images, which it should be. He was not tested for C. Diff at [facility] and his infectious work up there returned negative. Here, his lipase is not impressive, not are his LFT's. He has a normal triglyceride level. He does have an elevated neutrophil to lymphocyte ration and now a normalized lactate and renal function. Today he feels improved, but is still having dyspnea and had to be placed in a chair this morning as he felt like her was drowning. He states he had a significant amount of watery and profuse diarrhea overnight. Exam Narrative Exam Narrative: Gen: mild respiratory distress HENT: PERRL Chest: Mild respiratory distress, normal appearance of chest, bibasilar crackles Heart: regular rate and rhythym, no murmurs, rubs or gallops Abdomen: Distended, tender, no rebound or guarding Extremities: No clubbing, edema, cyanosis, rashes Neuro: AAOx3 , non focal Psych: cooperative, appropriate mental affect Most Recent VS/Results Last Vital Signs Temp 36.5 C 08/22/23 01:00 Pulse 55 L 08/22/23 06:00 Resp 18 08/22/23 06:00 BP 110/60 08/22/23 06:00 Pulse Ox 93 08/22/23 06:00 Laboratory Results - last 24 hr 08/21/23 08/21/23 08/21/23 08:13 08:17 08:42 WBC 8.43 RBC 3.99 L Hgb 12.5 L Hct 36.4 L MCV 91 MCH 31.3 MCHC 34.3 RDW 12.4 Plt Count 225 MPV 10.5 Immature Gran % 0.0 Neutrophils % 89.0 Band Neutrophils % 5 Lymphocytes % 5.0 Monocytes % 1.0 Eosinophils % 0.0 Basophils % 0.0 Nucleated RBC % 0.0 Absolute Neutrophils 7.92 H Absolute Lymphocytes 0.42 L Absolute Monocytes 0.08 L Absolute Eosinophils 0.00 Absolute Basophils 0.00 RBC Morphology Normal VBG Lactate 2.7 H* Sodium 133 L Potassium 3.6 Chloride 97 L Carbon Dioxide 22.8 Anion Gap 13.2 H BUN 31 H Creatinine 1.4 H Est GFR (CKD-EPI 2020) 52.41 Glucose 107 H Calcium 7.8 L Magnesium 2.0 Total Bilirubin 1.5 H AST 96 H ALT 64 H Alkaline Phosphatase 130 H Troponin I < 50 NT-Pro-B Natriuret Pep 493 H Total Protein 6.3 L Albumin 1.8 L Triglycerides Total Cholesterol LDL Cholesterol Direct LDL Cholesterol, Calc HDL Cholesterol Lipase 85 H Urine Color Urine Clarity Urine pH Ur Specific [place] Urine Protein Urine Ketones Urine Blood Urine Nitrite Urine Bilirubin Urine Urobilinogen Ur Leukocyte Esterase Urine RBC Urine WBC Ur Epithelial Cells Urine Crystals Urine Bacteria Urine Casts Urine Mucus Urine Other Ur Culture Indicated? Urine Glucose Random Vancomycin COVID-19 Source Nasopharynx SARS-CoV-2 (PCR) Negative Influenza Type A (PCR) Negative Influenza Type B (PCR) Negative RSV (PCR) Negative 08/21/23 08/21/23 08/21/23 09:35 12:25 12:35 WBC RBC Hgb Hct MCV MCH MCHC RDW Plt Count MPV Immature Gran % Neutrophils % Band Neutrophils % Lymphocytes % Monocytes % Eosinophils % Basophils % Nucleated RBC % Absolute Neutrophils Absolute Lymphocytes Absolute Monocytes Absolute Eosinophils Absolute Basophils RBC Morphology VBG Lactate 1.5 H Sodium Potassium Chloride Carbon Dioxide Anion Gap BUN Creatinine Est GFR (CKD-EPI 2020) Glucose Calcium Magnesium Total Bilirubin AST ALT Alkaline Phosphatase Troponin I < 50 NT-Pro-B Natriuret Pep Total Protein Albumin Triglycerides 57 Total Cholesterol <60 LDL Cholesterol Direct 7 LDL Cholesterol, Calc TNP HDL Cholesterol 12 L Lipase Urine Color Dark Yellow Urine Clarity Cloudy Urine pH 5.0 Ur Specific [place] >= 1.030 H Urine Protein 100 H Urine Ketones 15 H Urine Blood Negative Urine Nitrite Negative Urine Bilirubin Moderate H Urine Urobilinogen 2.0 H Ur Leukocyte Esterase Negative Urine RBC 0-2 Urine WBC 3-5 Ur Epithelial Cells Few Urine Crystals Moderate Amorphous Urine Bacteria Few Urine Casts 3-5 Hyaline Urine Mucus Moderate Urine Other Few Renal Ur Culture Indicated? No Urine Glucose 100 H Random Vancomycin COVID-19 Source SARS-CoV-2 (PCR) Influenza Type A (PCR) Influenza Type B (PCR) RSV (PCR) 08/22/23 05:15 WBC 10.66 RBC 3.46 L Hgb 10.8 L Hct 32.4 L MCV 94 MCH 31.2 MCHC 33.3 RDW 12.5 Plt Count 231 MPV 10.7 Immature Gran % 0.0 Neutrophils % 83.0 Band Neutrophils % Lymphocytes % 6.0 Monocytes % 9.0 Eosinophils % 2.0 Basophils % 0.0 Nucleated RBC % 0.0 Absolute Neutrophils 8.85 H Absolute Lymphocytes 0.64 L Absolute Monocytes 0.96 H Absolute Eosinophils 0.21 Absolute Basophils 0.00 RBC Morphology Normal VBG Lactate Sodium 136 Potassium 3.4 L Chloride 101 Carbon Dioxide 25.2 Anion Gap 9.8 BUN 24 H Creatinine 0.8 Est GFR (CKD-EPI 2020) 92.29 Glucose 135 H Calcium 7.6 L Magnesium Total Bilirubin 0.8 AST 59 H ALT 48 Alkaline Phosphatase 96 Troponin I NT-Pro-B Natriuret Pep Total Protein 5.6 L Albumin 1.4 L Triglycerides Total Cholesterol LDL Cholesterol Direct LDL Cholesterol, Calc HDL Cholesterol Lipase 72 Urine Color Urine Clarity Urine pH Ur Specific [place] Urine Protein Urine Ketones Urine Blood Urine Nitrite Urine Bilirubin Urine Urobilinogen Ur Leukocyte Esterase Urine RBC Urine WBC Ur Epithelial Cells Urine Crystals Urine Bacteria Urine Casts Urine Mucus Urine Other Ur Culture Indicated? Urine Glucose Random Vancomycin 10.3 COVID-19 Source SARS-CoV-2 (PCR) Influenza Type A (PCR) Influenza Type B (PCR) RSV (PCR) Review of Systems All systems reviewed & are unremarkable except as noted in HPI and below Time spent with patient Time spent in Critical Care: 60 Time spent in Critical care included: Coordination of care, Chart review, Documenting critically ill care, Time at immediate bedside and Discussing critically ill care with other medical staff Pocus Exam Limited Cardiac Exam DATE OF EXAM: 08/22/23 TIME OF EXAM: 08:00 PROVIDER THAT PERFORMED THE STUDY: Liss Cooper IS THIS A REPEAT EXAM DURING THIS ENCOUNTER: no REASON FOR EXAM: Hypotension VISUALIZED STRUCTURES: left atrium, left ventricle, right ventricle, aortic valve, mitral valve and Interventricular septum VIEW OBTAINED: Apical 4-Chamber and Parasternal long-axis Exam complete Limited Thoracic Lung Exam DATE OF EXAM: 08/22/23 TIME OF EXAM: 08:00 PROVIDER THAT PERFORMED THE STUDY: Liss Cooper IS THIS A REPEAT EXAM DURING THIS ENCOUNTER: No REASON FOR EXAM: Hypoxia VISUALIZED STRUCTURES: right anterior, left anterior, right posterior and left posterior PERTINENT FINDINGS/IMPRESSION: B-lines/left side, B-lines/right side, Left pleural effusion and Right pleural effusion Exam complete Multi-Disciplinary Checklist Lines/Tubes CENTRAL LINE: yes, Central Line Day#: 1 ARTERIAL LINE: yes, Arterial Line Day#: 1 (plan for removal today - non functional) BOCANEGRA: yes, Bocanegra Day#: 1 ENDOTRACHEAL TUBE: no ICU Maintenance GLUCOSE 140-180mg/dL: yes NUTRITION AT GOAL: no, Reason/Intervention: on clear liquids, I am ok with adv ancement PRESSURE ULCER: no RESTRAINTS: no ANTIBIOTICS(if yes, consider Stewardship): Yes Social Issues FAMILY UPDATED: no, Reason/Intervention: defer to hospitalist team/patient PT/OT: no, Reason/Intervention: not currently appropriate GOALS/DISPOSITION/CARD CLEANER: yes CODE STATUS: Full Prophylaxis DVT PROPHYLAXIS: yes GI PROPHYLAXIS: yes, Indication: added due to multiple pressor use
--- NOTE | 2023-08-22 08:33 | PDOC.CMIN ---
Date of service: 08/22/23 Time of Service: 08:33 Care Management Initial Assmt Initial Assessment REASON FOR HOSPITALIZATION:: Sepsis, pneumonia PREVIOUS FUNCTIONAL STATUS/SOCIAL/FAMILY SUPPORTS:: Medhat lives alone in [place], [place] in a 2 story home that he owns. He is retired from the [employer] (70% [employer] connected). 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 He has 2 dogs that are in the process of being adopted because he can no longer care for them. Medhat was recently [place] [facility] and discharged to [facility] for STR. Pt has 5 siblings that live in [place]. Of the 5, he is only close with his brother's Mindi and sister Lora. They are trying to arrange a route delivery service driver for when he discharges from the [facility]. Per Medhat, prior to his recent health decline he was independent with his ADL/IADL's and did not use any assistive devices to ambulate. CURRENT FUNCTIONAL STATUS:: Medhat was sitting up in the chair when CM met with him. He is awake and engages in conversation. Per pt, his dogs are currently at the vets getting checked over because they are being adopted. He shares that they have been the only constant in his life for the last 10 years. Medhat is anticipating that his percentage of connection is going to increase through the CT because he has tremors at baseline, which may get him more community services. Medhat is planning on returning to [facility] for STR before going back home. ADVANCE DIRECTIVES:: On file, [facility] Edwards Has patient been provided with info about the portal/API?: Yes Did the patient sign up for the portal?: No CODE STATUS:: Full Code INSURANCE COVERAGE / FINANCIAL ISSUES:: Medicare CURRENT HOME/COMMUNITY SERVICES/EQUIPMENT:: SNF: [facility] PRIMARY CARE PHYSICIAN:: Joe Mckinnon POTENTIAL DISCHARGE NEEDS:: Discharge plan of care, follow up appointments, Coordinate return to SNF PATIENT/FAMILY EDUCATION NEEDS:: Review discharge instructions, limitations and plan to follow up with facility/community providers. Discuss as me three. ANTICIPATED BARRIERS TO DISCHARGE:: None identified at this time. TRANSPORTATION:: via facility w/c van PLAN:: Medhat is being closely monitored in the ICU with Necrotizing Pancreatitis. He requires IV ABX, pulmonology and surgery are consulted. Anticipate. pt will discharge back to [facility] for STR, when he is medically ready before going back home with increased community supports. He will transport via facility w/c van. CM will continue to follow. PFSH All Active Problems (Updated 08/22/23 @ 09:14 by Liss Cooper MD) Respiratory failure with hypoxia (Acute) Pulmonary edema (Acute) Hypoalbuminemia (Acute) Hypocalcemia (Acute) Hypokalemia (Acute) Anemia (Chronic) Atelectasis of both lungs (Acute) Gall stone pancreatitis (Acute) Transaminitis (Acute) Acute kidney injury (nontraumatic) (Acute) Necrotizing pancreatitis (Acute) Tobacco dependence (Acute) Pancreatitis (Chronic) Septic shock (Acute) Medical History Parkinsonism PSVT (paroxysmal supraventricular tachycardia) PTSD (post-traumatic stress disorder) Obstructive sleep apnea Depression Hyperlipidemia COPD (chronic obstructive pulmonary disease) Abdominal aortic aneurysm Social History Smoking/Tobacco Use Status: Current-Occasional Smoking risk assessment performed?: Yes Alcohol Intake: never Drug use: Never Substance use type: does not use Housing: other SDOH(Care Management) Screening Will the Patient Participate in the Screening?: Unable to obtain
[2023-08-22] MEDS: Hydrocortisone SOD SUC. 100 MG VIAL IVP ×2 (08:43→17:22)
[2023-08-22] MEDS: LINEZOLID 600 MG/300 ML BAG 300 MG IVPB ×2 (08:45→21:22)
[2023-08-22] MEDS: Normal Saline Flush 10 ML SYR IVP ×4 (08:46→23:34)
[2023-08-22] MEDS: Norepinephrine in D5W 8 MG/250 ML BAG 18.75 MG IV (09:07)
[2023-08-22] MEDS: Pantoprazole 40 MG VIAL IVP (10:22)
--- NOTE | 2023-08-22 12:03 | PGE_ITS ---
Date of Service Date of service: 08/22/23 Time of Service: 12:03 Assessment and Plan Assessment and plan (1) Septic shock: Status: Acute Assessment and plan: patient still on N.E. and vasopressin and his a line non-functional and has been removed but he has adequate cuff pressures. NE being weaned. Vasopressin being held at 0.03 units/hr (should not be titrated). continue antibiotics coverage although vancomycin was changed to Zyvox per Dr. Cooper out of concern for acute renal injury. Blood, urine cultures pending. Source still likely d/t biliary source from gallstone pancreatitis, necrotizing pancreatitis, although the CT chest/abdomen/pelvis did not show any focal abscess. Procalcitonin level ordered but I would be hesitant of stopping antibiotics until we are certain he has negative cultures. IVF fluids stopped by Dr. Cooper. Stool for C diff ordered (was considered last night but stools were not watery but thickened/chunks, interesting he has had no further diarrhea since last night and stool still has not been able to be collected. Critical care time spent interviewing and examining the patient, reviewing studies, discussing case with patient's nurse and consulting physicians was 35 minutes (2) Necrotizing pancreatitis: Status: Acute Assessment and plan: secondary to gall stone pancreatitis; I think repeat MRCP should be done to clear the biliary tract prior to cholecystectomy. surgery was consulted and following patient. (3) Gall stone pancreatitis: Status: Acute Assessment and plan: CT yesterday showed contracted gall bladder and although stones present in the GB but none seen in biliary tract and no biliary dilatation. (4) Acute kidney injury (nontraumatic): Status: Acute Assessment and plan: improving, U.O. 3300 yesterday, however only 250 mL since 8 am and IV fluids were stopped this morning. Until taking PO I think he should be on some maintenance iv fluids; I understand risks of worse outcomes from excess fluid resuscitation in pancreatitis. BUN and creatinine have improved overnight w/ stabilization of his BP. BUN 31 > 24, creatinine 1.4 > 0.8. (5) Transaminitis: Status: Acute Assessment and plan: LFT and bilirubin are improving. total bili 1.5 > 0.8, AST 96 > 59, ALT 64 > 48, alkaline phosphatase 130 > 96 (6) Atelectasis of both lungs: Status: Acute Assessment and plan: encourage ambulation, use of IS and acapella (7) Pneumonia: Status: Suspected Assessment and plan: doubt he has pneumonia, not coughing up any purulent sputum; urine legionella and strep antigen ordered on admission and pending. I think that he has atelectasis from his acute abdominal process. Qualifiers: Pneumonia type: due to unspecified organism Laterality: bilateral Lung location: lower lobe of lung Qualified Code(s): J18.9 - Pneumonia, unspecified organism (8) COPD (chronic obstructive pulmonary disease): Assessment and plan: stable, supportive care w/ Duoneb prn and supplemental oxygne prn (currently on room air w/ good SPO2 95% Qualifiers: COPD type: emphysema Emphysema type: centrilobular Qualified Code(s): J43.2 - Centrilobular emphysema (9) Abdominal aortic aneurysm: Assessment and plan: stable 5.2 cm AAA Qualifiers: Abdominal aorta location: infrarenal aorta Presence of rupture: without rupture Qualified Code(s): I71.43 - Infrarenal abdominal aortic aneurysm, without rupture (10) Splenic vein thrombosis: Status: Suspected Assessment and plan: although this dx was not put on his dc summary from [facility], his repeat CT abdomen done on 08/14 prior to his dc from [facility] did suggest possible splenic vein thrombosis vs extrinsic compression from peripancreatic edema. Dr. Cooper has requested images from [facility] to be sent to [facility] for our DI department to review and compare. Subjective Subjective Interval history since last seen: Medhat is feeling somewhat better this morning, still w/ residual abdominal pain but not as intense as yesterday and he is tolerating a diet (fat restricted diet, clears). He is afebrile, but remains on N.E. and vasopressin w/ stable BP and N.E. is being weaned (down to 9 mcg/minute). A line was not functioning, unclear as to why this was left in his left hand last night. Exam Narrative Exam Narrative: Medhat is alert, oriented, no acute distress, no CP or dyspne Lungs: clear anteriorly and posteriorly Heart: RRR, no murmur or rub ABdomen: firm, normal bowel sounds, mild to moderate tenderness but no rebound tenderness, hepatomegaly Extremities: bilateral pitting lower leg edema 1+ Objective Last Vital Signs Temp 36.5 C 08/22/23 01:00 Pulse 58 L 08/22/23 10:26 Resp 20 08/22/23 10:26 BP 115/56 L 08/22/23 10:26 Pulse Ox 92 08/22/23 10:26 Laboratory Results - last 24 hr 08/21/23 08/21/23 08/21/23 09:35 12:25 12:35 WBC RBC Hgb Hct MCV MCH MCHC RDW Plt Count MPV Immature Gran % Neutrophils % Lymphocytes % Monocytes % Eosinophils % Basophils % Nucleated RBC % Absolute Neutrophils Absolute Lymphocytes Absolute Monocytes Absolute Eosinophils Absolute Basophils RBC Morphology VBG Lactate 1.5 H Sodium Potassium Chloride Carbon Dioxide Anion Gap BUN Creatinine Est GFR (CKD-EPI 2020) Glucose Calcium Total Bilirubin AST ALT Alkaline Phosphatase Troponin I < 50 Total Protein Albumin Triglycerides 57 Total Cholesterol <60 LDL Cholesterol Direct 7 LDL Cholesterol, Calc TNP HDL Cholesterol 12 L Lipase Urine Color Dark Yellow Urine Clarity Cloudy Urine pH 5.0 Ur Specific [place] >= 1.030 H Urine Protein 100 H Urine Ketones 15 H Urine Blood Negative Urine Nitrite Negative Urine Bilirubin Moderate H Urine Urobilinogen 2.0 H Ur Leukocyte Esterase Negative Urine RBC 0-2 Urine WBC 3-5 Ur Epithelial Cells Few Urine Crystals Moderate Amorphous Urine Bacteria Few Urine Casts 3-5 Hyaline Urine Mucus Moderate Urine Other Few Renal Ur Culture Indicated? No Urine Glucose 100 H Random Vancomycin 08/22/23 05:15 WBC 10.66 RBC 3.46 L Hgb 10.8 L Hct 32.4 L MCV 94 MCH 31.2 MCHC 33.3 RDW 12.5 Plt Count 231 MPV 10.7 Immature Gran % 0.0 Neutrophils % 83.0 Lymphocytes % 6.0 Monocytes % 9.0 Eosinophils % 2.0 Basophils % 0.0 Nucleated RBC % 0.0 Absolute Neutrophils 8.85 H Absolute Lymphocytes 0.64 L Absolute Monocytes 0.96 H Absolute Eosinophils 0.21 Absolute Basophils 0.00 RBC Morphology Normal VBG Lactate Sodium 136 Potassium 3.4 L Chloride 101 Carbon Dioxide 25.2 Anion Gap 9.8 BUN 24 H Creatinine 0.8 Est GFR (CKD-EPI 2020) 92.29 Glucose 135 H Calcium 7.6 L Total Bilirubin 0.8 AST 59 H ALT 48 Alkaline Phosphatase 96 Troponin I Total Protein 5.6 L Albumin 1.4 L Triglycerides Total Cholesterol LDL Cholesterol Direct LDL Cholesterol, Calc HDL Cholesterol Lipase 72 Urine Color Urine Clarity Urine pH Ur Specific [place] Urine Protein Urine Ketones Urine Blood Urine Nitrite Urine Bilirubin Urine Urobilinogen Ur Leukocyte Esterase Urine RBC Urine WBC Ur Epithelial Cells Urine Crystals Urine Bacteria Urine Casts Urine Mucus Urine Other Ur Culture Indicated? Urine Glucose Random Vancomycin 10.3 Time Spent with Patient Time Spent with Patient: 35-49 minutes Time was spent: preparing to see the patient(eg.review tests), obtaining and/or reviewing separately otained hiistory (reviewing [facility] records), ordering medications,tests, procedures, referring, communicating with other health health care administrator (nursing, Dr. Cooper, surgery PA ([facility])), indepentently interpreting results, counseling the patient and care coordination
[2023-08-22] MEDS: Albuterol/Ipratropium 3 ML UPD VIAL UPD ×2 (12:20→20:37)
[2023-08-22 12:42] LABS: Procalcitonin 4.6 ng/mL
[2023-08-22] MEDS: VASOPRESSIN 50 UNITS in Normal Saline 497.5 ML 18 UNITS IV (12:47)
--- NOTE | 2023-08-22 16:32 | NUR.NOTE ---
You 08/22/2023 4:29 PM ? I was informed by Kaity Younger in care management that Medhat's roommate tested positive for covid today. I spoke with Medhat's nurse at the rehab. There are two covid positive patients at the rehab currently and they are in a totally separate champion and contained with no exposure to Medhat. Medhat has only been at the facility and around his roommate since 08/16 and came in to the hospital on 08/20. His roommate that is now+ was an incidental finding on a rapid test as they decided to test all staff and patients. His roommate is not symptomatic. Per the PPE policy, we would just wear a surgical mask in the room but are not required to full precautions unless he becomes + (or someone wants to). He would be retested 3-5 days after exposure x 2 antigen tests 24 hrs apart. So a test on 08/22 and 08/23. I relayed this information to Dr. Meier and his primary nurse Joy Villanueva RN. Nursing Note:
[2023-08-22] MEDS: Normal Saline - Diluent 50 ML VIAL IJ (16:35)
[2023-08-22] MEDS: Omnipaque 350 MG/ML 100 ML BTL IJ (16:35)
--- NOTE | 2023-08-22 16:37 | DI.CT_ITS ---
Exam(s) CT ABDOMEN PELVIS W EXAM: CT ABDOMEN PELVIS W CLINICAL HISTORY: abdominal pain, necrrotizing pancreatitis TECHNIQUE: Imaging Protocol: Axial computed tomography images with coronal and sagittal reformatted images were created and reviewed. CONTRAST MATERIAL: Intravenous: Omnipaque 350 Contrast volume:100 mL Oral: No COMPARISON: CT CT THORAX ABD/PEL CTA from 08/21/2023 FINDINGS: ABDOMEN: Lung Bases: There is been progression of the infiltrates in the lower lobes particularly and the left lower lobe. There is also been an interval increase in size of the pleural effusions which are now small to moderate in size. The right pleural effusion has begun DISH 0 mild peripheral enhancement s uspicious for developing empyema. Coronary artery calcifications are present. No large central pulm onary embolism is seen. Emphysematous changes are present in the lungs. Liver: Normal density. There is subtle area of decreased attenuation in the periphery of the right lo be of the liver. This may represent focal fatty infiltration. Portal, Superior Mesenteric, and Splenic Veins: There is no evidence of a venous thrombosis. There i s mild compression of the portal and superior mesenteric veins at the confluence. Gallbladder and Biliary Tract: The gallbladder is contracted. Gallstones are present. There is no b iliary ductal dilatation. Pancreas: There is again seen heterogeneous enhancement of the pancreas particularly the head and unc inate process suggestive of necrotizing pancreatitis. There is a large amount of peripancreatic flui d again seen. There is a collection seen in the left pericolic gutter with a thin surrounding enhanc ing wall suggesting an abscess. It lies inferior to the spleen. (Series 5 image 389 through 6). Spleen: Normal. Adrenals: No masses seen. Kidneys: Normal size, contour and axis. No radiodense stones or obstructive uropathy. No masses seen. Abdominal Aorta: There is again seen a 4.8 x 5.1 cm infrarenal abdominal aortic aneurysm. No evidenc e of rupture. Atherosclerotic calcification is present. Bowel: There is diverticulosis of the colon. There is no evidence of bowel obstruction. There is wa ll thickening seen in loops of the distal transverse colon and ascending colon. In addition there is wall thickening seen in loops of small bowel particularly in the left upper quadrant. There is agai n seen an air-fluid collection adjacent to the horizontal portion of the duodenum which may represent a diverticulum versus an ulcer. No evidence of appendicitis. Peritoneal Cavity: Perihepatic and perisplenic ascites is present in addition to pelvic ascites. No free air. Lymph Nodes: There are enlarged lymph nodes seen in the upper abdomen and in the mesentery which are likely reactive. Bones: Within normal limits for the patient's age. Soft Tissues: There is a small amount of gas seen in the right anterior abdominal wall which may refl ect previous injection. There is edema seen in the subcutaneous soft tissues. There is a small fat containing paraumbilical hernia. PELVIS: Bladder: The urinary bladder is decompressed with a Webb catheter in place. There is air in the julee dder likely reflecting recent catheterization. Reproductive Organs: Unremarkable as visualized. Lymph Nodes: Within normal limits. Bones: Within normal limits for the patient's age. IMPRESSION: 1. No evidence of a splenic, portal or superior mesenteric vein thrombosis. 2. Findings again most suggestive of necrotizing pancreatitis. Findings suggestive of an early in ca psulated abscess in the left pericolic gutter. 3. Bowel wall thickening involving small bowel and colon which likely represents a secondary enteroco litis. No pneumatosis or portal venous gas. 4. Worsening bilateral pneumonia. Question of encapsulation of the right pleural effusion concerning for developing abscess/empyema. 5. Additional findings in the chest, abdomen and pelvis as described above. RADIATION DOSE DELIVERED: 2,491.97mGy.cm Total DLP DATA REPOSITORY: All CT scans at this facility are submitted to the National Radiology Data Registry (NRDR) Dose Index Registry (DIR) with the [employer] (ACR). RADIATION OPTIMIZATION: All CT scans at this facility use at least one of these dose optimization te chniques: automated exposure control; mA and/or kV adjustment per patient size (includes targeted exa ms where dose is matched to clinical indication); or iterative reconstruction.
[2023-08-22 21:58] LABS: Ionized Calcium 1.05 mmol/L (1.14-1.35)
[2023-08-22 22:55] LABS: Legionella Ag Detection Urine Negative (Negative)
[2023-08-23] VITALS (46 sets, daily range): BP systolic 92–143; BP diastolic 48–82; PULSE 58–75; RESP 2–28; TEMP 36.2–36.8; O2SAT 89–100
[2023-08-23] MEDS: Normal Saline Flush 10 ML SYR IVP ×7 (00:07→23:45)
[2023-08-23] MEDS: Hydrocortisone SOD SUC. 100 MG VIAL IVP ×2 (00:07→08:02)
[2023-08-23] MEDS: Heparin 5,000 UNITS/ML VIAL 5000 UNITS SC ×3 (06:10→22:48)
[2023-08-23 06:47] LABS: HCT 30.7 % (40.0-50.0); HGB 10.5 g/dL (13.5-17.5); MCH 31.3 pg (27.0-33.0); MCHC 34.2 % (32.0-36.0); MCV 91 fL (80-95); MPV 11.1 fL (8.0-11.0); Platelet Count 229 10^3/uL (130-400); RBC 3.36 10^6/uL (4.36-5.78); RDW-SD 40.5 fL; WBC 8.73 10^3/uL (4.4-10.8)
[2023-08-23 07:08] LABS: Absolute Lymphocyte Count 0.61 10^3/uL (1.2-3.4); Absolute Monocyte Count 0.35 10^3/uL (0.1-0.8); Absolute Neutrophil Count 7.77 10^3/uL (1.2-6.7); Bands % 4 %; Diff Comment Manual Differential; RBC Morphology Normal
[2023-08-23 07:16] LABS: ALT 35 U/L (16-63); AST 28 U/L (15-37); Albumin 1.5 g/dL (3.4-5.0); Alkaline Phosphatase 97 U/L (46-116); Anion Gap 8.9 mmol/L (3-11); BUN 23 mg/dL (7-18); Bilirubin, Total 0.6 mg/dL (0.2-1.0); CO2 27.1 mmol/L (21.0-32.0); CREATININE 0.8 mg/dL (0.70-1.30); Calcium 8.2 mg/dL (8.5-10.1); Chloride 99 mmol/L (98-107); Estimated GFR 92.29 (mL/min/1.73m2); Glucose 235 mg/dL (74-106); Potassium 3.4 mmol/L (3.5-5.1); Sodium 135 mmol/L (136-145); Total Protein 5.9 g/dL (6.4-8.2)
[2023-08-23] MEDS: PIPERACILLIN/TAZO 3.375 GM in Normal Saline 50 ML IVPB (08:03)
[2023-08-23] MEDS: LINEZOLID 600 MG/300 ML BAG 300 MG IVPB ×2 (08:03→19:55)
[2023-08-23] MEDS: Albuterol/Ipratropium 3 ML UPD VIAL UPD ×3 (08:14→20:10)
--- NOTE | 2023-08-23 08:18 | RESPIRATORY ---
Spoke with patient about TRAVIS diagnosis and patient advised [facility] to use and both he had issues with and returned. [facility] never provided him with another alternative.
[2023-08-23] MEDS: Potassium Chloride Liquid 20 MEQ PKT PO ×2 (08:37→19:55)
--- NOTE | 2023-08-23 09:05 | PGE_ITS ---
Date of Service Date of service: 08/23/23 Time of Service: 09:05 Assessment and Plan Assessment and plan (1) Septic shock: Status: Acute Assessment and plan: Transaminitis has resolved total bilirubin is back to normal. He remains malnourished with low albumin level 1.5 total protein 5.9. We will get a nutritional consult today. He was weaned off of norepinephrine last night and weaned off the vasopressin this morning. He remains hemodynamically stable we will plan for transfer to the medical/surgical floor today. I will talk with surgical service regarding timing of performing a cholecystectomy. Continue Zosyn and Zyvox; consider repeat MRCP to clear the biliary tree prior to cholecystecomty. CT abdomen yesterday although did not show any splenic vein thrombosis now is showing encapsulated abscess in left paracolic gutter. I will review w/ general surgery; may need to send to [facility] for evaluation of drainage. Professional time spent interviewing and examining patient, discussion of goals of care with hospital team (care management, nursing and consulting professionals) was 45 minutes. (2) Necrotizing pancreatitis: Status: Acute Assessment and plan: secondary to gall stone pancreatitis; I think repeat MRCP should be done to clear the biliary tract prior to cholecystectomy. surgery was consulted and following patient. (3) Gall stone pancreatitis: Status: Acute Assessment and plan: repeat CT was done yesterday w/ venous phase contrast to rule out splenic vein thrombosis and none was seen. (4) Acute kidney injury (nontraumatic): Status: Acute Assessment and plan: Patient has remained off iv fluids since initial resuscitation and he seems to be tolerating liquid diet which I will advance. U.O. is good at 1800 mL yesterday. BUN and creatinine have improved overnight w/ stabilization of his BP. BUN 31 > 24 > 23, creatinine 1.4 > 0.8 > 0.8. (5) Transaminitis: Status: Resolved Assessment and plan: LFT and bilirubin are improving. total bili 1.5 > 0.8 > 0.6, AST 96 > 59 > 28; ALT 64 > 48 > 35, alkaline phosphatase 130 > 96 > 97 (6) Atelectasis of both lungs: Status: Acute Assessment and plan: encourage ambulation, use of IS and acapella. patient now couging up some purulent sputum and sent for gram stain and culture (7) Pneumonia: Status: Suspected Assessment and plan: patient now having more respiratory symptoms of cough and sputum production Qualifiers: Laterality: bilateral Lung location: lower lobe of lung Pneumonia type: due to unspecified organism Qualified Code(s): J18.9 - Pneumonia, unspecified organism (8) COPD (chronic obstructive pulmonary disease): Assessment and plan: stable, supportive care w/ Duoneb prn and supplemental oxygne prn (currently on room air w/ good SPO2 95% Qualifiers: COPD type: emphysema Emphysema type: centrilobular Qualified Code(s): J43.2 - Centrilobular emphysema (9) Abdominal aortic aneurysm: Assessment and plan: stable 5.2 cm AAA Qualifiers: Abdominal aorta location: infrarenal aorta Presence of rupture: without rupture Qualified Code(s): I71.43 - Infrarenal abdominal aortic aneurysm, without rupture (10) Splenic vein thrombosis: Status: Ruled-out Assessment and plan: although this dx was not put on his dc summary from [facility], his repeat CT abdomen done on 08/14 prior to his dc from [facility] did suggest possible splenic vein thrombosis vs extrinsic compression from peripancreatic edema. Follow up CT abdomen and pelvis w/ venous phase contrast was done yesterday and ruled out splenic vein thrombosis. Subjective Subjective Interval history since last seen: Medhat is feeling markedly better. No nausea or vomiting. I advance his diet today. Abdominal pain is markedly improved. He has had no diarrhea therefore were going to cancel his C. difficile order. He remains on broad-spectrum antibiotics for necrotizing pancreatitis felt to be secondary to gallstone pancreatitis. Objective Last Vital Signs Temp 36.4 C L 08/23/23 04:31 Pulse 68 08/23/23 08:20 Resp 14 08/23/23 08:14 BP 118/57 L 08/23/23 04:31 Pulse Ox 95 08/23/23 08:14 Laboratory Results - last 24 hr 08/22/23 08/23/23 05:15 06:05 WBC 8.73 RBC 3.36 L Hgb 10.5 L Hct 30.7 L MCV 91 MCH 31.3 MCHC 34.2 RDW 12.0 Plt Count 229 MPV 11.1 H Immature Gran % 0.0 Neutrophils % 85.0 Band Neutrophils % 4 Lymphocytes % 7.0 Monocytes % 4.0 Eosinophils % 0.0 Basophils % 0.0 Nucleated RBC % 0.0 Absolute Neutrophils 7.77 H Absolute Lymphocytes 0.61 L Absolute Monocytes 0.35 Absolute Eosinophils 0.00 Absolute Basophils 0.00 RBC Morphology Normal Sodium 135 L Potassium 3.4 L Chloride 99 Carbon Dioxide 27.1 Anion Gap 8.9 BUN 23 H Creatinine 0.8 Est GFR (CKD-EPI 2020) 92.29 Glucose 235 H Calcium 8.2 L Total Bilirubin 0.6 AST 28 ALT 35 Alkaline Phosphatase 97 Total Protein 5.9 L Albumin 1.5 L Procalcitonin 4.6 Time Spent with Patient Time Spent with Patient: 35-49 minutes Time was spent: preparing to see the patient(eg.review tests), referring, communicating with other health adult daycare coordinator, indepentently interpreting results, counseling the patient and care coordination
[2023-08-23 09:36] LABS: Lab Add On Test DONE
[2023-08-23] MEDS: Pantoprazole 40 MG VIAL IVP (10:03)
--- NOTE | 2023-08-23 10:40 | PDOC.CMPRO ---
Date of service: 08/23/23 Time of Service: 10:40 Care Management Progress Note Progress Note Text Progress Note Text: S/O: Medhat was sitting up in his chair when CM met with him. He is awake and easily engages in conversation. Clinically he appears to be doing better, BP has been stable off pressors and his mentation back to baseline, per RN. Surgical is consulted, may need a IR procedure vs cholecystectomy per provider. Medhat states that his eyes hurt because he doesn't have his glasses. Per pt, the last place he remembers having them are at the Rehab. CM notified Jasmyne, waiting to see if she can find them. Medhat is also planning on a visit from his sister today. CM will follow. A: 77 year old male admitted to [facility] on 08/21/23 with Acute on Chronic Respiratory Failure P: Medhat is being closely monitored in the ICU with Necrotizing Pancreatitis. He requires IV ABX, pulmonology and surgery are consulted. Anticipate. pt will discharge back to [facility] for STR, when he is medically ready before going back home with increased community supports. He will transport via facility w/c van. CM will continue to follow. SDOH(Care Management) Screening Will the Patient Participate in the Screening?: Unable to obtain
--- NOTE | 2023-08-23 11:49 | PHA.REVIEW2 ---
Pharmacy Admission Review Admission Clinical Review Admission Pharmacy Review: Respiratory failure with hypoxia (Acute) Pulmonary edema (Acute) Hypoalbuminemia (Acute) Hypocalcemia (Acute) Hypokalemia (Acute) Atelectasis of both lungs (Acute) Gall stone pancreatitis (Acute) Acute kidney injury (nontraumatic) (Acute) Necrotizing pancreatitis (Acute) Septic shock (Acute) No Known Allergies Allergy (Unverified 08/21/23 11:14) Resuscitation Status Full Code Height 5 ft 9 in Weight 89 kg Comments Comments/Follow Ups: If kidney function continues to be improved tomorrow, reach out to provider regarding missing home medications (atorvastatin, bisoprolol, lisinopril) Pharmacy Admission Review Renal Dosing Renal Dosing: BUN 23 mg/dL (7-18) H 08/23/23 06:05 Creatinine 0.8 mg/dL (0.70-1.30) 08/23/23 06:05 Medications needing adjustments: Intervened (CrCl 70.43 mL/min) List of meds needing interventions: Reached out to provider regarding Zosyn dose, which can now be increased up to normal dose of 4.5g q6h due to improved kidney function. Waiting to hear back from provider. Anticoagulation Anticoagulation: Hgb 10.5 g/dL (13.5-17.5) L 08/23/23 06:05 Hct 30.7 % (40.0-50.0) L 08/23/23 06:05 Plt Count 229 10^3/uL (130-400) 08/23/23 06:05 Creatinine 0.8 mg/dL (0.70-1.30) 08/23/23 06:05 DVT Prophylaxis: Reviewed Medications: Heparin (q8h) Opiate Usage Evaluate Pain Scale/Pains Meds: Reviewed (PRN hydromorphone) Scheduled Bowel Reg ordered if on Opiates?: No (PRN Miralax) Relevant Labs Relevant Labs: Sodium 135 mmol/L (136-145) L 08/23/23 06:05 Potassium 3.4 mmol/L (3.5-5.1) L 08/23/23 06:05 Chloride 99 mmol/L (98-107) 08/23/23 06:05 Magnesium 2.0 mg/dL (1.8-2.4) 08/23/23 06:05 Electrolytes, C-Reactive P, ESR: Reviewed (Na 135, K 3.4 - order put in this morning for potassium 20mg MeQ packets, Hgb slightly decreased from 10.8 to 10.5, glucose 235) Cardiac Review Cardiac Review: Troponin I < 50 ng/L (< or =60) 08/21/23 12:25 NT-Pro-B Natriuret Pep 493 pg/mL (<300) H 08/21/23 08:17 BP, HR, EF%: Reviewed (BP and HR WNL, has been weaned off of vasopressin and Levophed drip this morning) QTc Review QTc: Reviewed (429 from 08/20) IV to PO Switch IV Medications: Reviewed (Hydrocortisone, hydromorphone, linezolid, pantoprazole, Zosyn) Home Meds Home Med List reviewed: Reviewed Relevent Home Meds Not ordered & why?: Aspirin, atorvastatin, bisoprolol (CHARANJIT) and lisinopril (CHARANJIT) Current Meds Current Medication Order Review: Reviewed Pharmacy Antibiotic Review Relevant Labs: Relevant Labs 08/22/23 05:15 Procalcitonin 4.6 WBC 8.73 10^3/uL (4.4-10.8) 08/23/23 06:05 Procalcitonin 4.6 ng/mL 08/22/23 05:15 Temperature 36.4 C Temperature 36.4 C Temperature 36.4 C Temperature 36.4 C Microbiology 08/22/23 12:15 Urine Culture - Preliminary Urine - Cath Webb Indwelling 08/22/23 08:38 Gram Stain - Final Sputum 08/22/23 23:00 Gram Stain - Final Sputum 08/21/23 12:45 Blood Culture - Preliminary Blood NO GROWTH 24 HOURS 08/21/23 12:25 Blood Culture - Preliminary Blood NO GROWTH 24 HOURS 08/22/23 08:36 Gram Stain - Final Sputum - Expectorated Pharmacy Antibiotic Activity: C/S review and Reviewed, no change Comments: Patient is on day 2 of Zosyn and linezolid for sepsis/pneumonia. Blood culture showing no growth and sputum/urine culture pending. Comments Comments/Follow Ups: If kidney function continues to be improved tomorrow, reach out to provider regarding missing home medications (atorvastatin, bisoprolol, lisinopril)
--- NOTE | 2023-08-23 13:08 | IN_ITS ---
PT Notes Visit Reasons: Sepsis,pneumonia,pancreatitis Physical Therapy Inpatient Initial Evaluation Date: 08/23/2023 Referring Doctor: Tommy Ornelas MD PT Orders: PT CONSULT: Extended Stay weakness Precautions: Fall. Standard precautions. Activity as tolerated. Patient Profile/Admitting Diagnosis: Medhat is a 77-year-old male patient with past medical history significant for Parkinsonism who presented to the ED on 08/20/2022 with chief complaints of severe chest pain, abdominal pain, and shortness of breath. Patient is admitted to [facility] of care for management of necrotizing pancreatitis, gallstone pancreatitis, septic shock, CHARANJIT, transaminitis, atelectasis of the lungs, pneumonia, COPD, and AAA. PMHX: All Active Problems (Updated 08/21/23 @ 19:20 by Tommy Meier MD) Atelectasis of both lungs (Acute) Gall stone pancreatitis (Acute) Transaminitis (Acute) Acute kidney injury (nontraumatic) (Acute) Necrotizing pancreatitis (Acute) Tobacco dependence (Acute) Pancreatitis (Chronic) Septic shock (Acute) Medical History (Updated 08/21/23 @ 19:20 by Tommy Meier MD) Parkinsonism PSVT (paroxysmal supraventricular tachycardia) PTSD (post-traumatic stress disorder) Obstructive sleep apnea Depression Hyperlipidemia COPD (chronic obstructive pulmonary disease) Abdominal aortic aneurysm Social History/Home Situation: Lives alone in a private home. Modified independent with use of front wheeled walker prior to hospital and SNF admission. Equipment Owned/DME: FWW Subjective: Continues to complain of weakness although not as severe as it was since day of admission. Agreeable to trying out walking to see how he does. Denied headache, chest pain, and lightheadedness throughout session. No report of abdominal pain. Objective: General Observation: Seated on bedside chair. Oxygen saturation monitoring in place. Webb catheter in place. Mental Status: Alert and oriented as to person, place, time, and purpose. Able to pay attention, focus, and respond appropriately. Pain: None reported Vital Signs: Oxygen saturation stayed between 93 and 94% on RA throughout session ROM: Right Upper Extremity: Shoulder Flexion WFL. Shoulder abduction WFL. Elbow flexion WFL. Wrist flexion WFL. Functional opening and closing of hand WFL. Left Upper Extremity: Shoulder Flexion WFL. Shoulder abduction WFL. Elbow flexion WFL. Wrist flexion WFL. Functional opening and closing of hand WFL. Right Lower Extremity: Hip flexion WFL. Hip abduction WFL. Knee flexion WFL. Ankle dorsiflexion WFL. Ankle plantarflexion WFL. Left Lower Extremity: Hip flexion WFL. Hip abduction WFL. Knee flexion WFL. Ankle dorsiflexion WFL. Ankle plantarflexion WFL. Strength: Right Upper Extremity: Shoulder flexors 4-/5. Shoulder abductors 4-/5. Elbow flexors 4-/5. Elbow extensors 4-/5. Professional Nursing Tutor strong. Left Upper Extremity: Shoulder flexors 4-/5. Shoulder abductors 4-/5. Elbow flexors 4-/5. Elbow extensors 4-/5. Professional Nursing Tutor strong. Right Lower Extremity: Hip flexors 4/5. Hip abductors 4/5. Knee flexors 4/5. Knee extensors 4/5. Ankle dorsiflexors 4/5. Ankle plantarflexors 4/5. Left Lower Extremity: Hip flexors 4-/5. Hip abductors 4-/5. Knee flexors 4-/5. Knee extensors 4-/5. Ankle dorsiflexors 4-/5. Ankle plantarflexors 4-/5. Bed Mobility/Transfers: Minimal cueing provided for use of B hands as needed for support, movement sequence, AD management, and posture to reduce fall risk and minimize pain report Sit to stand contact gurd assist with FWW Stand to sit contact gurd assist with FWW Bed to reclining chair contact gurd assist with FWW Reclining chair to bed contact gurd assist with FWW Gait: Facilitated safe and correct performance of level surface ambulation using front wheeled walker covering a distance of 100 feet with step through reciprocal gait pattern. Prema decreased. Minimal verbal cueing provided for AD management, directional changes, and energy conservation technique. SOB resolved with rest. Balance: Static Sitting: Normal Dynamic Sitting: Normal Static Standing: Fair Dynamic Standing: Fair Special Tests: Mobility Limitations Standardized Measure [facility] AM-PAC 6 clicks Basic Mobility Inpatient Short Form: Raw Score: 18 CMS Score: 47% deficit 4-Stage Balance Test: Feet together 10 minutes Semi-tandem <10 minutes Full-time <10 minutes One-legged stance <10 minutes Informed Consent/Education: Patient was instructed in purpose of PT consult and plan of care. Agreeable to proceed with established PT POC to achieve personal goals. THERA EX: Chest expansion exercises with shoulder flexion extension with deep breathing exercises x 5 Seated marches x 10 Chest expansion exercises with shoulder flexion extension with deep breathing exercises x 5 LAQs x 10 Chest expansion exercises with shoulder flexion extension with deep breathing exercises x 5 Ankle Df/PF Assessment: Patient requires use of a front wheeled walker for mobility ADL performance with contact-guard assist of caregiver to maximize independence and reduce fall risk. Patient presents with clinical signs and symptoms consistent with current/admitting diagnoses that have resulted to mobility limitations, gait instability, generalized weakness, and overall ADL decline as demonstrated by the following impairment level findings: 1. Decreased strength to B UE/LE major muscle groups 2. Impaired sitting/standing balance 3. Impaired activity tolerance 4. Shortness of breath 5. Swelling in B legs and feet Impairments are contributing to the following functional limitations: 1. Decline in bed mobility skills 2. Decline in transfer skills 3. Difficulty with ambulation without assistive device and physical assistance 4. Increased completion time for mobility ADL performance 5. Increased risk for falls 6. Difficulty with managing steps alone safely Patient is assessed as a 19942 moderate complexity based on the following: History: 77-year-old male with past medical history as indicated above Examination: Demonstrable impairment in strength, balance, and mobility level with underlying impairments and functional limitations as exhibited above as well as deficit score of 47% utilizing the [facility] Mobility Inpatient Short Form Presentation: Evolving Decision Makin moderate complexity Goals: Goals X1 week 1. Supine-Sit independent 2. Sit-Supine independent 3. Sit-Stand independent 4. Stand-Sit independent with FWW 5. Bed-Chair independent with FWW 6. Chair-Bed independent with FWW 7. Independent gait on level surface with use of FWW for at least 150 feet without report of pain nor dyspnea 8. Independent stair negotiation while holding onto B rails for at least 3 steps without report of pain nor dyspnea 9. Independent with home exercise program 10. Good static and dynamic standing balance/tolerance Plan of Care/Treatment Plan: 1-2x/day, 7 days/week x 1 week. Plan of care has been reviewed with the CERTIFIED PERSONAL TRAINER providing the service under Physical Therapy direction. Initiate Physical Therapy intervention for pain management as needed, strengthening, bed mobility, transfers, gait, stairs, balance training, and use of assistive device. DISCHARGE RECOMMENDATIONS: [] Home with no services [] [] Home with services [specify] [] Home with outpatient PT [] [] SNF for continued rehabilitation [] [] Half-Way Care [] [] SNF versus LTC based on ability to participate and progress [] [X] HHPT vs short-term SNF based on progress towards goals TREATMENT CODE/TIME: 9716 2 x 21 minutes for 1 unit (13:09-13:29). Thank you for the opportunity to participate in the care of this patient. Peggy Madden PT, DPT, CLT [facility] [place], [place]
[2023-08-23] MEDS: PIPERACILLIN/TAZO 4.5 GM in Normal Saline 100 ML IVPB ×2 (14:22→21:20)
[2023-08-23] MEDS: HYDROmorphone 2 MG/ML SYR IVP ×2 (14:37→23:44)
[2023-08-23] MEDS: Hydrocortisone SOD SUC. 100 MG VIAL 50 MG IVP ×2 (15:09→22:47)
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
--- NOTE | 2023-08-23 19:25 | PGE_ITS ---
Date of Service Date of service: 08/23/23 Time of Service: 19:25 Assessment and Plan Assessment and plan (1) Splenic vein thrombosis: Status: Ruled-out (2) Pancreatitis: Status: Chronic (3) Gall stone pancreatitis: Status: Acute Assessment and plan: Dr. Diallo and then denied today discussed the patient's gallstone pancreatitis. Patient is currently recovering nicely from his pancreatitis. He was in rehab for 3 days after discharge from [facility] for gallstone pancreatitis. It appears he had a recrudescence. After Johnson is concerned that if we send him back to rehab he is going to continue to have problems and needs his gallbladder taken out. I do need to review his CT with radiology. I also need to review the case with anesthesia and discuss his comorbidities. Certainly I do not think he is a surgical candidate this week. If he continues to improve then possibly next we ek we could consider surgical intervention. Continue medical management at this time. He is on Zosyn and linezolid He is on Protonix He is on steroid protocol for sepsis He is on heparin for DVT prophylaxis I did review his CT today. He may be developing an abscess in the right gutter. I do not think it is mature enough to place a drain in. There is a significant amount of ascites and fluid in the abdomen. Whether this organizes into an abscess remains to be seen. I think CT in 72 hours or if he spikes a fever and white count. I am very hesitant to consider him for surgery right now given the amount of inflammation that is currently going on in the abdomen. It would be a very technically difficult surgery and might need to go open. Surgery will continue to follow him closely. But at this time management as per hospitalist service. 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 Qualified Code(s): J43.2 - Centrilobular emphysema (13) Obstructive sleep apnea: (14) PSVT (paroxysmal supraventricular tachycardia): (15) Abdominal aortic aneurysm: Qualifiers: Abdominal aorta location: infrarenal aorta Presence of rupture: without rupture Qualified Code(s): I71.43 - Infrarenal abdominal aortic aneurysm, without rupture (16) Hyperlipidemia: Objective Last Vital Signs Temp 36.2 C L 08/23/23 15:55 Pulse 72 08/23/23 15:55 Resp 16 08/23/23 15:55 BP 143/68 H 08/23/23 15:55 Pulse Ox 97 08/23/23 15:55 Laboratory Results - last 24 hr 08/21/23 08/22/23 08/23/23 16:45 12:55 06:05 WBC 8.73 RBC 3.36 L Hgb 10.5 L Hct 30.7 L MCV 91 MCH 31.3 MCHC 34.2 RDW 12.0 Plt Count 229 MPV 11.1 H Immature Gran % 0.0 Neutrophils % 85.0 Band Neutrophils % 4 Lymphocytes % 7.0 Monocytes % 4.0 Eosinophils % 0.0 Basophils % 0.0 Nucleated RBC % 0.0 Absolute Neutrophils 7.77 H Absolute Lymphocytes 0.61 L Absolute Monocytes 0.35 Absolute Eosinophils 0.00 Absolute Basophils 0.00 RBC Morphology Normal Sodium 135 L Potassium 3.4 L Chloride 99 Carbon Dioxide 27.1 Anion Gap 8.9 BUN 23 H Creatinine 0.8 Est GFR (CKD-EPI 2020) 92.29 Glucose 235 H Calcium 8.2 L Ionized Calcium 1.05 L Magnesium 2.0 Total Bilirubin 0.6 AST 28 ALT 35 Alkaline Phosphatase 97 Total Protein 5.9 L Albumin 1.5 L Urine Legionella Ag Negative Add-On Test Request 08/23/23 09:35 WBC RBC Hgb Hct MCV MCH MCHC RDW Plt Count MPV Immature Gran % Neutrophils % Band Neutrophils % Lymphocytes % Monocytes % Eosinophils % Basophils % Nucleated RBC % Absolute Neutrophils Absolute Lymphocytes Absolute Monocytes Absolute Eosinophils Absolute Basophils RBC Morphology Sodium Potassium Chloride Carbon Dioxide Anion Gap BUN Creatinine Est GFR (CKD-EPI 2020) Glucose Calcium Ionized Calcium Magnesium Total Bilirubin AST ALT Alkaline Phosphatase Total Protein Albumin Urine Legionella Ag Add-On Test Request DONE Time Spent with Patient Time Spent with Patient: <25 minutes Time was spent: preparing to see the patient(eg.review tests), obtaining and/or reviewing separately otained hiistory, ordering medications,tests, procedures, referring, communicating with other health animal care technician and care coordination
[2023-08-24] VITALS (11 sets, daily range): BP systolic 119–158; BP diastolic 65–90; PULSE 64–99; RESP 9–20; TEMP 35.2–37.1; O2SAT 94–97
[2023-08-24] MEDS: PIPERACILLIN/TAZO 4.5 GM in Normal Saline 100 ML IVPB ×4 (01:52→21:39)
[2023-08-24] MEDS: Normal Saline Flush 10 ML SYR IVP ×4 (01:53→20:26)
[2023-08-24] MEDS: Heparin 5,000 UNITS/ML VIAL 5000 UNITS SC ×3 (06:18→21:38)
[2023-08-24 06:55] LABS: Abs Immature Grans 0.05 10^3/uL (0.0-0.06); HCT 33.4 % (40.0-50.0); HGB 11.3 g/dL (13.5-17.5); MCH 31.4 pg (27.0-33.0); MCHC 33.8 % (32.0-36.0); MCV 93 fL (80-95); Platelet Count 220 10^3/uL (130-400); RDW-SD 41.8 fL; WBC 7.01 10^3/uL (4.4-10.8)
[2023-08-24 07:08] LABS: ALT 35 U/L (16-63); AST 26 U/L (15-37); Albumin 1.6 g/dL (3.4-5.0); Alkaline Phosphatase 91 U/L (46-116); Anion Gap 6.2 mmol/L (3-11); BUN 16 mg/dL (7-18); Bilirubin, Total 0.5 mg/dL (0.2-1.0); CO2 27.8 mmol/L (21.0-32.0); CREATININE 0.8 mg/dL (0.70-1.30); Calcium 8.1 mg/dL (8.5-10.1); Chloride 103 mmol/L (98-107); Estimated GFR 92.29 (mL/min/1.73m2); Glucose 274 mg/dL (74-106); Potassium 3.9 mmol/L (3.5-5.1); Sodium 137 mmol/L (136-145)
[2023-08-24 07:14] LABS: Absolute Lymphocyte Count 0.21 10^3/uL (1.2-3.4); Absolute Neutrophil Count 6.31 10^3/uL (1.2-6.7); Bands % 3 %
[2023-08-24 07:15] LABS: Absolute Basophil Count 0.07 10^3/uL (0.0-0.2); Absolute Eosinophil Count 0.07 10^3/uL (0.0-0.7); Absolute Monocyte Count 0.35 10^3/uL (0.1-0.8); Diff Comment Diff Reviewed; RBC Morphology Normal
[2023-08-24] MEDS: Albuterol/Ipratropium 3 ML UPD VIAL UPD ×3 (08:29→15:36)
[2023-08-24] MEDS: Potassium Chloride Liquid 20 MEQ PKT PO (08:49)
[2023-08-24] MEDS: LINEZOLID 600 MG/300 ML BAG 300 MG IVPB ×2 (09:41→22:35)
--- NOTE | 2023-08-24 09:43 | PDOC.CMPRO ---
Date of service: 08/24/23 Time of Service: 09:43 Care Management Progress Note Progress Note Text Progress Note Text: S/O: Medhat was sitting on the side of his bed when CM met with him. He is awake and easily engages in conversation. He had some concerns with being able to pay his bills and he and his family worked it out with his bank. Medhat states that he is feeling better and was able to work with PT twice today. He is very happy with the care he is receiving while at [facility]. He is planning to have his gallbladder out next week if some of the swelling comes down. Per report: Surgical is consulted, surgical intervention is being considered for next week if he continues to improve. Plan is to return to [facility] for STR when he is medically cleared. CM will follow. A: 77 year old male admitted to [facility] on 08/21/23 with Acute on Chronic Respiratory Failure P: Medhat is being closely monitored in the ICU with Necrotizing Pancreatitis. He requires IV ABX, pulmonology and surgery are consulted. Anticipate. pt will discharge back to [facility] for STR, when he is medically ready before going back home with increased community supports. He will transport via facility w/c van. CM will continue to follow. SDOH(Care Management) Screening Will the Patient Participate in the Screening?: Unable to obtain
[2023-08-24] MEDS: Pantoprazole 40 MG VIAL IVP (09:50)
[2023-08-24] MEDS: HYDROmorphone 2 MG/ML SYR IVP ×2 (09:50→20:25)
--- NOTE | 2023-08-24 14:04 | PTTR_ITS ---
PT Notes Visit Reasons: Sepsis,pneumonia,pancreatitis Inpatient Physical Therapy Treatment Note [facility] Date: 08/24/23 SUBJECTIVE: Medhat states that he is feeling better today, although tired from being up all morning. He and family waiting for notary to come in and sign a document. OBJECTIVE: []? VITALS: ?monitored by [facility] Therapeutic Activities ([id number]) 15 min.: Direct one-on-one instruction in dynamic activities to improve functional performance. ? BED MOBILITY/TRANSFERS? Sit-supine: S? Sit-stand: S? Stand-sit: S ? Provided skilled cues and instruction on performance and technique throughout. ? GAIT? Assistive Device: FWW? Weight bearing: full Assist: S/SBA ? Distance:?approx 450'? Deviation: slowed gait once he became fatigued.? ASSESSMENT:? tolerated session well. He was concerned about being out of room too long as he was waiting for the notary. No c/o SOB. No LOB. PLAN: continue working on strength, endurance and functional mobility to tolerance following PT POC. TREATMENT CODE/TIME: 15min. [id number]
[2023-08-24 15:01] LABS: Streptococcus Pneumoniae Ag, U Negative (Negative)
--- NOTE | 2023-08-24 15:12 | PGE_ITS ---
Date of Service Date of service: 08/24/23 Time of Service: 15:12 Assessment and Plan Assessment and plan (1) Necrotizing pancreatitis: Status: Acute Assessment and plan: secondary to gall stone pancreatitis; Dr. Berumen discussed his case w/ me and w/ anesthesia, she feels that he will need several weeks for the inflammation to resolve before considering open cholecystectomy (he is not a candidate for lap choly d/t alll the scarring). She feels that the best thing for him would be to have a cholecystotomy tube (can reach out to [facility] in the morning to try to arrange this early next week) then get him appt with one of their surgeons to be evaluated for open cholecystectomy. (2) Gall stone pancreatitis: Status: Acute Assessment and plan: repeat CT was done w/ venous phase contrast to rule out splenic vein thrombosis and none was seen however there may be an evolving encapsulated abscess in the left paracolic gutter. Dr. Berumen looked at the CT and she indicated that it is too small for IR drainage but that he ought to have another CT done in 72 hours to see if this becomes organized and developes a rind at which point an IR place drainage tube could be done. (3) Hyperglycemia: Status: Acute Assessment and plan: patient may have incipient DM caused by his recurrent pancreatitis; we have been monitoring his glucose bid but his glucose has been running in the high 200's; I will check glycohemoglobin A1C and cover with low dose (insulin sensitive novolog dosing); I will set the threshold to be > 180 before any coverage occurs. I will also put him on pancrease/Creon w/ meals (4) Pneumonia: Status: Suspected Assessment and plan: cough improved, not bringing up purulent sputum, not dyspneic, Qualifiers: Laterality: bilateral Lung location: lower lobe of lung Pneumonia type: due to unspecified organism Qualified Code(s): J18.9 - Pneumonia, un specified organism (5) Atelectasis of both lungs: Status: Acute Assessment and plan: encourage ambulation, use of IS and acapella. patient now couging up some purulent sputum and sent for gram stain and culture (6) Urinary retention: Status: Acute (7) Septic shock: Status: Resolved (8) Acute kidney injury (nontraumatic): Status: Resolved Assessment and plan: Patient has remained off iv fluids since initial resuscitation and he seems to be tolerating liquid diet which I will advance. U.O. is good at 1800 mL yesterday. BUN and creatinine have improved overnight w/ stabilization of his BP. BUN 31 > 24 > 23, creatinine 1.4 > 0.8 > 0.8. (9) Transaminitis: Status: Resolved Assessment and plan: LFT and bilirubin are improving. total bili 1.5 > 0.8 > 0.6, AST 96 > 59 > 28; ALT 64 > 48 > 35, alkaline phosphatase 130 > 96 > 97 (10) COPD (chronic obstructive pulmonary disease): Assessment and plan: stable, supportive care w/ Duoneb prn and supplemental oxygne prn (currently on room air w/ good SPO2 95% Qualifiers: COPD type: emphysema Emphysema type: centrilobular Qualified Code(s): J43.2 - Centrilobular emphysema (11) Abdominal aortic aneurysm: Assessment and plan: stable 5.2 cm AAA Qualifiers: Abdominal aorta location: infrarenal aorta Presence of rupture: without rupture Qualified Code(s): I71.43 - Infrarenal abdominal aortic aneurysm, without rupture (12) Discharge planning issues: Status: Acute Assessment and plan: patient has indicated that he does not want to go back to [facility]. He wants to go to a facility closer to his home in [place], [place] Subjective Subjective Interval history since last seen: Medhat states he is feeling better. No nausea or vomiting. Stools are more formed. No abdominal pain. I told Medhat that I would discuss his case w/ Dr. Berumen as to the timing of having a cholecystectomy and that he will likely need a drainage tube for now to prevent future gall bladder attacks. Exam Narrative Exam Narrative: alert and oriented, no acute distress Lungs: clear anteriorly, posteriolry diminished breath sounds at the bases, no rhonchi or wheezing heart: RRR, no murmur or rub or gallops Abdomen: distended, but nontender, normal bowel sounds Objective Last Vital Signs Temp 36.5 C 08/24/23 14:55 Pulse 72 08/24/23 14:55 Resp 18 08/24/23 14:55 BP 119/67 08/24/23 14:55 Pulse Ox 97 08/24/23 14:55 Laboratory Results - last 24 hr 08/21/23 08/24/23 16:45 06:20 WBC 7.01 RBC 3.60 L Hgb 11.3 L Hct 33.4 L MCV 93 MCH 31.4 MCHC 33.8 RDW 12.0 Plt Count 220 MPV 11.0 Immature Gran % See Differential Neutrophils % 87.0 Band Neutrophils % 3 Lymphocytes % 3.0 Monocytes % 5.0 Eosinophils % 1.0 Basophils % 1.0 Nucleated RBC % 0.0 Absolute Neutrophils 6.31 Absolute Lymphocytes 0.21 L Absolute Monocytes 0.35 Absolute Eosinophils 0.07 Absolute Basophils 0.07 RBC Morphology Normal Sodium 137 Potassium 3.9 Chloride 103 Carbon Dioxide 27.8 Anion Gap 6.2 BUN 16 Creatinine 0.8 Est GFR (CKD-EPI 2020) 92.29 Glucose 274 H Calcium 8.1 L Total Bilirubin 0.5 AST 26 ALT 35 Alkaline Phosphatase 91 Total Protein 6.0 L Albumin 1.6 L Ur Strep pneumoniae Ag Negative Time Spent with Patient Time Spent with Patient: 35-49 minutes Time was spent: preparing to see the patient(eg.review tests), ordering medications,tests, procedures, referring, communicating with other health direct care staffer (Dr. Berumen, nursing, ), indepentently interpreting results, counseling the patient and care coordination
--- NOTE | 2023-08-24 15:49 | PT.INTREAT ---
PT Notes Visit Reasons: Sepsis,pneumonia,pancreatitis Physical Therapy Inpatient Treatment Note Date: 08/24/2023 Precautions: Fall. Standard precautions. Activity as tolerated. Subjective: Continues to complain of weakness although not as severe as it was since day of admission. Agreeable to trying out walking to see how he does. Denied headache, chest pain, and lightheadedness throughout session. No report of abdominal pain. Objective: General Observation: Seated on bedside chair. Oxygen saturation monitoring in place. Webb catheter in place. Mental Status: Alert and oriented as to person, place, time, and purpose. Able to pay attention, focus, and respond appropriately. Pain: None reported Vital Signs: BP 175/69 mmHg, HR 88 bpm, O2 sat 95% on RA after walking 200 feet using FWW Bed Mobility/Transfers: Minimal cueing provided for use of B hands as needed for support, movement sequence, AD management, and posture to reduce fall risk and minimize pain report Sit to stand supervision with FWW Stand to sit supervision with FWW Bed to reclining chair supervision with FWW Reclining chair to bed supervision with FWW Gait: Facilitated safe and correct performance of level surface ambulation using front wheeled walker covering a distance of 200 feet with step through reciprocal gait pattern. Prema decreased. Minimal verbal cueing provided for AD management, directional changes, and energy conservation technique. SOB resolved with rest. Cueing provided for pacing and energy conservation. Stairs: Up and down 2 x 6-inch steps and 3 x 4-inch steps while holding onto B rails with stand by assist only. Cueing provided for pacing and energy conservation. Balance: Static Sitting: Normal Dynamic Sitting: Normal Static Standing: Fair Dynamic Standing: Fair THERA EX: Chest expansion exercises with shoulder flexion extension with deep breathing exercises x 5 Seated marches x 10 Chest expansion exercises with shoulder flexion extension with deep breathing exercises x 5 LAQs x 10 Chest expansion exercises with shoulder flexion extension with deep breathing exercises x 5 Ankle Df/PF Assessment: Patient requires use of a front wheeled walker for mobility ADL performance with supervision to maximize independence and reduce fall risk. Activity tolerance improving. Stability of gait increasing. [place] with mobility performance better. Plan of Care/Treatment Plan: 1-2x/day, 7 days/week x 1 week. Plan of care has been reviewed with the [facility] C[employer]ER providing the service under Physical Therapy direction. Initiate Physical Therapy intervention for pain management as needed, strengthening, bed mobility, transfers, gait, stairs, balance training, and use of assistive device. DISCHARGE RECOMMENDATIONS: [] Home with no services [] [] Home with services [specify] [] Home with outpatient PT [] [] SNF for continued rehabilitation [] [] Senior Living Care [] [] SNF versus LTC based on ability to participate and progress [] [X] HHPT vs short-term SNF based on progress towards goals TREATMENT CODE/TIME: [id number] x 20 minutes for 1 unit (15:49-16:09).
[2023-08-24] MEDS: Tamsulosin 0.4 MG CAPCR PO (15:52)
[2023-08-24] MEDS: Multivitamin TAB 1 TAB PO (15:52)
--- NOTE | 2023-08-24 18:14 | W.PM.PROGNOT ---
Date of Service Date of service: 08/24/23 Time of Service: 18:14 Assessment and Plan Assessment and plan (1) Splenic vein thrombosis: Status: Ruled-out (2) Pancreatitis: Status: Chronic (3) Necrotizing pancreatitis: Status: Acute (4) Gall stone pancreatitis: Status: Acute Assessment and plan: -_Reviewed case w/ anesthesia that dose not feel he is a candidate for surgery at [facility] -I did review his CTs again he cannot have surgery for the next 6 to 12 weeks until the inflammation has a tendency to reseed and until he can regain protein and become stronger. Albumin is 1.6 Sugars are high at 254 -He is currently tolerating p.o.'s and is pain-free liver enzymes and lipase has normalized. -The patient was discharged from [facility] and ended up back in [facility] with gallstone pancreatitis and septic shock and less than 5 days. Again he is not amenable to surgery right now. I think he would best be served getting a cholecystotomy tube down at [facility]. And continue on antibiotics as necessary. I did discuss this with Dr. Diallo at the hand. It will probably happen on Monday-[facility] only does their own and patients on Mondays and will not take outside patients until Monday.. This would be arranged with IR at [facility] as a down and back transfer. -Patient may need placement as I do not think he is strong enough to go home right now. -We should repeat the CT on Monday or Monday to see if fluid collection/phlegmon around the pancreas and the spleen is turning into an abscess. He also may need a percutaneous drain if this has become a localized abscess. CT ordered for Monday -He is also being currently treated for pneumonia. And this needs to resolve prior to any anesthesia as long as he remains stable. -He is not currently anticoagulated for the splenic vein thrombosis. -Continue medical management and will follow peripherally and aid in surgical planning/decision making. This document was created with voice activated software and may contain errors (5) Acute kidney injury (nontraumatic): Status: Acute (6) Anemia: Status: Chronic (7) Tobacco dependence: Status: Acute (8) COPD (chronic obstructive pulmonary disease): Qualifiers: COPD type: emphysema Emphysema type: centrilobular Qualified Code(s): J43.2 - Centrilobular emphysema (9) Parkinsonism: (10) Hyperlipidemia: (11) Atelectasis of both lungs: Status: Acute Objective Last Vital Signs Temp 36.5 C 08/24/23 14:55 Pulse 76 08/24/23 15:48 Resp 18 08/24/23 15:48 BP 119/67 08/24/23 14:55 Pulse Ox 97 08/24/23 15:48 Laboratory Results - last 24 hr 08/21/23 08/24/23 16:45 06:20 WBC 7.01 RBC 3.60 L Hgb 11.3 L Hct 33.4 L MCV 93 MCH 31.4 MCHC 33.8 RDW 12.0 Plt Count 220 MPV 11.0 Immature Gran % See Differential Neutrophils % 87.0 Band Neutrophils % 3 Lymphocytes % 3.0 Monocytes % 5.0 Eosinophils % 1.0 Basophils % 1.0 Nucleated RBC % 0.0 Absolute Neutrophils 6.31 Absolute Lymphocytes 0.21 L Absolute Monocytes 0.35 Absolute Eosinophils 0.07 Absolute Basophils 0.07 RBC Morphology Normal Sodium 137 Potassium 3.9 Chloride 103 Carbon Dioxide 27.8 Anion Gap 6.2 BUN 16 Creatinine 0.8 Est GFR (CKD-EPI 2020) 92.29 Glucose 274 H Calcium 8.1 L Total Bilirubin 0.5 AST 26 ALT 35 Alkaline Phosphatase 91 Total Protein 6.0 L Albumin 1.6 L Ur Strep pneumoniae Ag Negative Basic Metabolic Sodium 137 mmol/L (136-145) 08/24/23 Potassium 3.9 mmol/L (3.5-5.1) 08/24/23 Chloride 103 mmol/L (98-107) 08/24/23 Carbon Dioxide 27.8 mmol/L (21.0-32.0) 08/24/23 BUN 16 mg/dL (7-18) 08/24/23 Creatinine 0.8 mg/dL (0.70-1.30) 08/24/23 Glucose 274 mg/dL (74-106) H 08/24/23 CBC White Blood Count 7.01 10^3/uL (4.4-10.8) 08/24/23 Red Blood Count 3.60 10^6/uL (4.36-5.78) L 08/24/23 Hemoglobin 11.3 g/dL (13.5-17.5) L 08/24/23 Hematocrit 33.4 % (40.0-50.0) L 08/24/23 Mean Corpuscular Volume 93 fL (80-95) 08/24/23 Mean Corpuscular Hemoglobin 31.4 pg (27.0-33.0) 08/24/23 Mean Corpuscular Hemoglobin Concent 33.8 % (32.0-36.0) 08/24/23 Red Cell Distribution Width 12.0 % (11.8-14.1) 08/24/23 Platelet Count 220 10^3/uL (130-400) 08/24/23 Mean Platelet Volume 11.0 fL (8.0-11.0) 08/24/23 Neutrophils % 87.0 % 08/24/23 Band Neutrophils % 3 % 08/24/23 Lymphocytes % 3.0 % 08/24/23 Monocytes % 5.0 % 08/24/23 Eosinophils % 1.0 % 08/24/23 Basophils % 1.0 % 08/24/23 Immature Granulocytes % See Differential 08/24/23 Comprehensive Metabolic Panel Sodium 137 mmol/L (136-145) 08/24/23 06:20 Potassium 3.9 mmol/L (3.5-5.1) 08/24/23 06:20 Chloride 103 mmol/L (98-107) 08/24/23 06:20 Carbon Dioxide 27.8 mmol/L (21.0-32.0) 08/24/23 06:20 BUN 16 mg/dL (7-18) 08/24/23 06:20 Creatinine 0.8 mg/dL (0.70-1.30) 08/24/23 06:20 Glucose 274 mg/dL (74-106) H 08/24/23 06:20 Calcium 8.1 mg/dL (8.5-10.1) L 08/24/23 06:20 Total Bilirubin 0.5 mg/dL (0.2-1.0) 08/24/23 06:20 ALT 35 U/L (16-63) 08/24/23 06:20 AST 26 U/L (15-37) 08/24/23 06:20 Alkaline Phosphatase 91 U/L (46-116) 08/24/23 06:20 Total Protein 6.0 g/dL (6.4-8.2) L 08/24/23 06:20 Albumin 1.6 g/dL (3.4-5.0) L 08/24/23 06:20 Anemia profile Hgb 11.3 g/dL (13.5-17.5) L 08/24/23 Hct 33.4 % (40.0-50.0) L 08/24/23 MCV 93 fL (80-95) 08/24/23 RDW 12.0 % (11.8-14.1) 08/24/23 Diabetes results Glucose 274 mg/dL (74-106) H 08/24/23 Total Cholesterol <60 mg/dL (<200) 08/21/23 LDL Cholesterol, Calc TNP 08/21/23 LDL Cholesterol Direct 7 mg/dL (<100) 08/21/23 HDL Cholesterol 12 mg/dL (40-60) L 08/21/23 Triglycerides 57 mg/dL (<150) 08/21/23 BUN 16 mg/dL (7-18) 08/24/23 Creatinine 0.8 mg/dL (0.70-1.30) 08/24/23 Est GFR (CKD-EPI 2020) 92.29 (mL/min/1.73m2) 08/24/23 Sodium 137 mmol/L (136-145) 08/24/23 Potassium 3.9 mmol/L (3.5-5.1) 08/24/23 Chloride 103 mmol/L (98-107) 08/24/23 Carbon Dioxide 27.8 mmol/L (21.0-32.0) 08/24/23 Calcium 8.1 mg/dL (8.5-10.1) L 08/24/23 AST 26 U/L (15-37) 08/24/23 ALT 35 U/L (16-63) 08/24/23 Total Protein 6.0 g/dL (6.4-8.2) L 08/24/23 Albumin 1.6 g/dL (3.4-5.0) L 08/24/23 Lipid profile Total Cholesterol <60 mg/dL (<200) 08/21/23 HDL Cholesterol 12 mg/dL (40-60) L 08/21/23 LDL Cholesterol, Calc TNP 08/21/23 LDL Cholesterol Direct 7 mg/dL (<100) 08/21/23 Triglycerides 57 mg/dL (<150) 08/21/23 Stool tests (SJP) No Data to Display Time Spent with Patient Time Spent with Patient: <25 minutes Time was spent: obtaining and/or reviewing separately otained hiistory, ordering medications,tests, procedures, referring, communicating with other health healthcare facility administrator, indepentently interpreting results and care coordination
[2023-08-24] MEDS: Atorvastatin 10 MG TAB PO (20:25)
[2023-08-24] MEDS: Protein Nutritional Supplement 16 GM 1 OUNCE PACKET PO (20:27)
[2023-08-25] MEDS: PIPERACILLIN/TAZO 4.5 GM in Normal Saline 100 ML IVPB ×4 (01:16→20:30)
[2023-08-25] MEDS: Normal Saline Flush 10 ML SYR IVP ×6 (01:17→23:54)
[2023-08-25] MEDS: HYDROmorphone 2 MG/ML SYR IVP ×4 (01:17→23:55)
[2023-08-25 04:11] VITALS: BP 125/61; PULSE 70; RESP 16; TEMP 37; O2SAT 95
[2023-08-25] MEDS: Heparin 5,000 UNITS/ML VIAL 5000 UNITS SC ×3 (05:42→21:14)
[2023-08-25 07:58] VITALS: BP 112/64; PULSE 106; RESP 18; TEMP 35.1; O2SAT 97
[2023-08-25] MEDS: LINEZOLID 600 MG/300 ML BAG 300 MG IVPB ×2 (08:07→21:15)
[2023-08-25] MEDS: Multivitamin TAB 1 TAB PO (08:08)
[2023-08-25] MEDS: Pantoprazole 20 MG TABCR PO (08:08)
[2023-08-25] MEDS: Protein Nutritional Supplement 16 GM 1 OUNCE PACKET PO ×3 (08:09→21:14)
[2023-08-25] MEDS: Tamsulosin 0.4 MG CAPCR PO (08:09)
[2023-08-25] MEDS: Insulin Aspart 300 UNITS/3 ML PEN SC ×3 (08:24→16:51)
[2023-08-25 08:46] LABS: Lab Add On Test DONE
[2023-08-25 09:08] LABS: Hemoglobin A1C 6.6 % (<5.7)
--- NOTE | 2023-08-25 10:11 | PT.INTREAT ---
PT Notes Visit Reasons: Sepsis,pneumonia,pancreatitis Date: 08/25/23 PRECAUTIONS: Fall. Standard precautions. Activity as tolerated. SUBJECTIVE: pt in recliner hugging a pillow on his abdominal area, doing rhythmical rocking motion, reports the pain on his belly is intense and the rocking and pillow compression helps with the pain, pt having meds administered on IV line at the time of approach, pt reports he would like to try and stand up so as to stimulate coughing to be able to produce sputum sample for the lab. OBJECTIVE: IV drip on going ? PAIN: 01/17 abdominal pain VITALS: closely monitored by nursing? Therapeutic Activities 43753: Direct one-on-one instruction in dynamic activities to improve functional performance. ?? BED MOBILITY/TRANSFERS? Rolling L/R: not performed Supine-sit: ? not performed ? Sit-supine: ? ?not performed ? Sit-stand: ? ? CGA? Stand-sit: ?? CGA? Provided skilled cues and instruction on performance and technique throughout. ? ASSESSMENT:?Pt able to tolerate 5mins continuous static standing, change in position induced coughing and was able to procure sputum sample, pt refused weight shifting activity and marching in place due to pain, Nurse Soni place pt on hold for further PT for this morning. will try laterin the afternoon if pt condition improves. PLAN: Continue with balance training, global strengthening and general conditioning for improved safety, mobility and activity tolerance until pt is ready for DC. TREATMENT CODE/TIME: 39970x5 10mins (9:40-9:50am)
--- NOTE | 2023-08-25 10:50 | NUR.NOTE ---
Pt had declined pain medication this morning. Child And Adolescent Psychologist came to nurse and told that pt was c/o a headache. Went to pt's room to offer tylenol as it was ordered, pt got angry that it was offered It gives me diarrhea. Advised that nursing will have provider take it off list. Pt got angry again and asked nurse to leave the room, stated we can;t work together. Spoke to Hospitalist about pt's concerns, who will make some changes after revieweing his med list. Pt agreed to try dilaudid in the meantime. Will monitor closel.Nursing Note:
--- NOTE | 2023-08-25 11:15 | CHAPLAIN ---
Medhat has moved out to Med/Surg since I visited him last in the ICU. He appears much more uncomfortable today. He's up in the chair, holding a pillow to his stomach and rocking. He said he's in pain and would like to . I let his nurse know and she was headed into to see him when I left. Medhat did say his brother had been to visit him. He said he believes the plan is still for him to have his gallbladder out, which his nurse said isn't the plan, so he's not aware of or understanding the plan is for him. His nurse also said that Medhat hadn't said he was in a lot of pain.
--- NOTE | 2023-08-25 11:20 | PGE_ITS ---
Date of Service Date of service: 08/25/23 Time of Service: 11:20 Assessment and Plan Assessment and plan (1) Necrotizing pancreatitis: Status: Acute Assessment and plan: -secondary to gall stone pancreatitis -Dr. Berumen discussed his case w/ previous hospitalist and w/ anesthesia; she feels that he will need several weeks for the inflammation to resolve before considering open cholecystectomy (he is not a candidate for lap choly d/t all the scarring). She feels that the best thing for him would be to have a cholecystotomy tube then get him appt with one of their surgeons to be evaluated for open cholecystectomy. (2) Gall stone pancreatitis: Status: Acute Assessment and plan: -repeat CT was done w/ venous phase contrast to rule out splenic vein thrombosis and none was seen however there may be an evolving encapsulated abscess in the left paracolic gutter. -Dr. Berumen looked at the CT and she indicated that it is too small for IR drainage but that he ought to have another CT done in 72 hours to see if this becomes organized and developes a rind at which point an IR place drainage tube could be done -she has ordered repeat CT abdomen on Monday08/26/2023 (3) Hyperglycemia: Status: Acute Assessment and plan: -patient may have incipient DM caused by his recurrent pancreatitis -we have been monitoring his glucose bid but his glucose has been running in the high 200's; -cover with low dose (insulin sensitive novolog dosing); set the threshold to be > 180 before any coverage occurs -continue pancrease/Creon w/ meals (4) Pneumonia: Status: Suspected Assessment and plan: -cough improved, not bringing up purulent sputum, not dyspneic, Qualifiers: Pneumonia type: due to unspecified organism Laterality: bilateral Lung location: lower lobe of lung Qualified Code(s): J18.9 - Pneumonia, unspecified organism (5) Atelectasis of both lungs: Status: Acute Assessment and plan: -encourage ambulation, use of IS and acapella. patient now couging up some purulent sputum and sent for gram stain and culture (6) Urinary retention: Status: Acute (7) Septic shock: Status: Resolved (8) Acute kidney injury (nontraumatic): Status: Resolved Assessment and plan: -Patient has remained off iv fluids since initial resuscitation and he seems to be tolerating liquid diet -U.O. is good at 1800 mL yesterday. BU -N and creatinine have improved overnight w/ stabilization of his BP. BUN 31 > 24 > 23, creatinine 1.4 > 0.8 > 0.8. (9) Transaminitis: Status: Resolved Assessment and plan: -LFT and bilirubin are improving (10) COPD (chronic obstructive pulmonary disease): Assessment and plan: -stable, supportive care w/ Duoneb prn and supplemental oxygne prn (currently on room air w/ good SPO2 95% Qualifiers: COPD type: emphysema Emphysema type: centrilobular Qualified Code(s): J43.2 - Centrilobular emphysema (11) Abdominal aortic aneurysm: Assessment and plan: -stable 5.2 cm AAA Qualifiers: Abdominal aorta location: infrarenal aorta Presence of rupture: without rupture Qualified Code(s): I71.43 - Infrarenal abdominal aortic aneurysm, without rupture (12) Discharge planning issues: Status: Acute Assessment and plan: -patient has indicated that he does not want to go back to [facility]. He wants to go to a facility closer to his home in [place], [place] Subjective Subjective Interval history since last seen: Patient states that he is in a lot of pain and that he does not want to take tyl enol because it causes diarrhea. He is amenable to taking his PRN dilaudid. Exam Narrative Exam Narrative: ill appearing older gentleman sitting in the chair in moderate distress due to pain, AOx4, heart RRR, lungs CTAB, abdomen with mild diffuse tenderness without rebound or guarding Objective Last Vital Signs Temp 95.2 F L 08/25/23 07:58 Pulse 106 H 08/25/23 07:58 Resp 18 08/25/23 07:58 BP 112/64 08/25/23 07:58 Pulse Ox 97 08/25/23 07:58 Laboratory Results - last 24 hr 08/21/23 08/24/23 08/25/23 16:45 06:20 08:45 Hemoglobin A1c 6.6 H Ur Strep pneumoniae Ag Negative Add-On Test Request DONE Time Spent with Patient Time Spent with Patient: >50 minutes Time was spent: preparing to see the patient(eg.review tests), obtaining and/or reviewing separately otained hiistory, ordering medications,tests, procedures, referring, communicating with other health med care manager, indepentently interpreting results, counseling the patient and care coordination
[2023-08-25 11:46] VITALS: BP 103/71; PULSE 100; RESP 18; TEMP 36.6; O2SAT 94
[2023-08-25] MEDS: Creon, Lipase 24,000 CAPCR 1 CAP PO ×2 (11:53→16:50)
--- NOTE | 2023-08-25 13:15 | PDOC.CMPRO ---
Date of service: 08/25/23 Time of Service: 13:15 Care Management Progress Note Progress Note Text Progress Note Text: S/O: Medhat was sitting in a chair when CM met with him. He is awake and engages in conversation. He is nauseous today and doesn't feel he can eat. He is planning to have his gallbladder out next week if some of the swelling comes down. Plan is to return to [facility] for STR when he is medically cleared (No availability at their facility in [place] which is closed to admissions at this time). CM will follow. A: 77 year old male admitted to [facility] on 08/21/23 with Acute on Chronic Respiratory Failure P: Cholecystectomy is planned for next week if some of the swelling comes down. Anticipate. [facility], when he is medically ready before going back home with increased community supports. He will transport via facility w/c van. CM will continue to follow. SDOH(Care Management) Screening Will the Patient Participate in the Screening?: Unable to obtain
--- NOTE | 2023-08-25 13:39 | PT.INTREAT ---
PT Notes Visit Reasons: Sepsis,pneumonia,pancreatitis Inpatient Physical Therapy Treatment Note [facility] Date: 08/25/23 PRECAUTIONS:Standard SUBJECTIVE: Pt reports that he was given some medicine and he is feeling much better this afternoon. OBJECTIVE: Therapeutic Activities ([id number][]): Direct one-on-one instruction in dynamic activities to improve functional performance. ? BED MOBILITY/TRANSFERS? Sit-supine: CGA ? Sit-stand: CGA? Stand-sit: CGA ? GAIT? Assistive Device: FWW? Weight bearing: Full Assist: CGA ? Distance:? Five steps from the chair to the bed. Once pt reached the bed we completed static standing to fatigue. ? Therapeutic Exercises ([id number][]): Direct one-on-one instruction in therapeutic exercises to develop strength, endurance, range of motion and flexibility. ? Exercises ? Supine shoulder horz abd x 10 Shoulder flexion x 10 Heel slides x 10 ? ASSESSMENT:? Pt required frequent rest periods due to fatigue and breathing. PLAN: Cont as per PT POC. TREATMENT CODE/TIME: 1:20-1:38 (18) TA
[2023-08-25 15:37] VITALS: BP 114/74; PULSE 119; RESP 18; TEMP 36.8; O2SAT 95
--- NOTE | 2023-08-25 16:26 | NUR.NOTE ---
DC'd madsen catheter d/t pt request/irritated that he feels like he has to urinate. Discussed with him that we can remove it, but if he is unable to go on his own, it will need to be replaced, pt agreed. Hospitalist gave VO to alex madsen. Bedside urinal brought in room and pull ups placed on pt. Nursing Note:
--- NOTE | 2023-08-25 17:15 | RT.EKG_ITS ---
APPROVED REPORT Exam: Resting ECG Reason for Exam: chest pain Patient Location: I HR:123 bpm ECG Measurements Heart Rate 123 AXIS RI 112 P 43 QRSd 85 QRS 36 QT 304 T 30 QTc 435 Conclusion Sinus tachycardia...rate> [address]-T abnormalities
[2023-08-25 18:20] LABS: Troponin I < 50 ng/L (< or =60)
--- NOTE | 2023-08-25 19:40 | RESPIRATORY ---
RT seen pt. for TRAVIS diagnosis. Pt. advised RT that pt. does not use any kind of CPAP machine. States will be okay without it.
[2023-08-25 20:55] VITALS: BP 114/57; PULSE 118; RESP 22; O2SAT 94
[2023-08-25] MEDS: Atorvastatin 10 MG TAB PO (21:15)
--- NOTE | 2023-08-25 21:54 | W.PM.PROGNOT ---
Date of Service Date of service: 08/25/23 Time of Service: 16:00 Assessment and Plan Assessment and plan (1) Splenic vein thrombosis: Status: Ruled-out (2) Hyperglycemia: Status: Acute (3) Necrotizing pancreatitis: Status: Acute (4) Gall stone pancreatitis: Status: Acute Assessment and plan: currently pt is not medical stable for surgery. I did discuss the case with Dr. Campos again. If they are truly concerned that he still has cholecystitis and is passing gallstones, then he should get a cholecystotomy tube placed. He has a repeat CT tomorrow to see if he is developing an abscess or even a pseudocyst. I did discuss the case with Dr. Albarran who will be resuming care and he will look for the CT. pt is tolerating po's adn no signs of sepsis. He is relatively pain free. He ist still very week/fatigued. He is working w/PT and nutritional therapy. Further recommendations to follow. Continue medical management. Will follow peripherally. This document was created with voice activated software and may contain errors. 15 in non face to face time (5) Anemia: Status: Chronic (6) Hypoalbuminemia: Status: Acute (7) Pneumonia: Status: Suspected Qualifiers: Pneumonia type: due to unspecified organism Laterality: bilateral Lung location: lower lobe of lung Qualified Code(s): J18.9 - Pneumonia, unspecified organism (8) Atelectasis of both lungs: Status: Acute (9) Pulmonary edema: Status: Acute (10) Respiratory failure with hypoxia: Status: Acute (11) Tobacco dependence: Status: Acute (12) Hyperlipidemia: (13) Abdominal aortic aneurysm: Qualifiers: Abdominal aorta location: infrarenal aorta Presence of rupture: without rupture Qualified Code(s): I71.43 - Infrarenal abdominal aortic aneurysm, without rupture (14) PSVT (paroxysmal supraventricular tachycardia): (15) Parkinsonism: (16) COPD (chronic obstructive pulmonary disease): Qualifiers: COPD type: emphysema Emphysema type: centrilobular Qualified Code(s): J43.2 - Centrilobular emphysema (17) Obstructive sleep apnea: Objective Last Vital Signs Temp 36.8 C 08/25/23 15:37 Pulse 118 H 08/25/23 20:55 Resp 22 08/25/23 20:55 BP 114/57 L 08/25/23 20:55 Pulse Ox 94 08/25/23 20:55 Laboratory Results - last 24 hr 08/24/23 08/25/23 08/25/23 06:20 08:45 17:53 Hemoglobin A1c 6.6 H Troponin I < 50 Add-On Test Request DONE Time Spent with Patient Time Spent with Patient: <25 minutes Time was spent: preparing to see the patient(eg.review tests), ordering medications,tests, procedures, referring, communicating with other health vocational childcare teacher, indepentently interpreting results and care coordination
[2023-08-26] VITALS (64 sets, daily range): BP systolic 60–182; BP diastolic 41–152; PULSE 58–242; RESP 2–27; TEMP 36.9–37.6; O2SAT 90–99
--- NOTE | 2023-08-26 00:30 | DI.RAD_ITS ---
Exam(s) XR PORTABLE CHEST AP EXAM: XR PORTABLE CHEST AP CLINICAL HISTORY: sob, increase oxygen requirement. TECHNIQUE: 2D digital imaging was performed. COMPARISON: CR XR PORTABLE CHEST AP from 08/21/2023 FINDINGS: Single AP portable view. Heart size normal. Mediastinum unchanged. Distal tip of the right jugular line is in the lower SVC at SVC-RA junction, unchanged. There is increasing infiltrate in the mid-lower right lung field. Blunting of both costophrenic angl es noted consistent with probable bilateral pleural effusions. IMPRESSION: Increasing right-sided infiltrate. Probable small pleural effusions. DATA REPOSITORY: RADIATION DOSE DELIVERED:
[2023-08-26] MEDS: Furosemide 40 MG/4 ML VIAL IVP ×2 (00:43→10:09)
[2023-08-26] MEDS: Normal Saline Flush 10 ML SYR IVP ×7 (00:44→12:08)
[2023-08-26 01:02] LABS: HCT 37.3 % (40.0-50.0); HGB 12.4 g/dL (13.5-17.5); MCH 31.1 pg (27.0-33.0); MCHC 33.2 % (32.0-36.0); MCV 94 fL (80-95); MPV 11.1 fL (8.0-11.0); Nucleated RBC 0.2 % (0.0-0.3); Platelet Count 180 10^3/uL (130-400); RBC 3.99 10^6/uL (4.36-5.78); RDW 12.2 % (11.8-14.1); RDW-SD 42.4 fL; WBC 10.11 10^3/uL (4.4-10.8)
[2023-08-26] MEDS: PIPERACILLIN/TAZO 4.5 GM in Normal Saline 100 ML IVPB ×2 (01:07→07:56)
[2023-08-26 01:08] LABS: BE (Venous) 4 mmol/L (-2-3); HCO3 (Venous) 28 mmol/L (23-28); O2 Sat (Venous) 78 %; TCO2 (Venous) 26 mmol/L (24-29); pCO2 (Venous) 47 mmHg (41-51); pH (Venous) 7.39 (7.31-7.41); pO2 (Venous) 43 mmHg
[2023-08-26] MEDS: Albuterol/Ipratropium 3 ML UPD VIAL UPD ×2 (01:11→10:06)
[2023-08-26 01:13] LABS: Diff Comment Manual Differential; Metamyelocytes % 1; RBC Morphology Normal
--- NOTE | 2023-08-26 01:14 | DI.VRAD_ITS ---
PROCEDURE INFORMATION: Exam: XR Chest Exam date and time: 08/26/2023 12:45 AM Age: 77 years old Clinical indication: Shortness of breath; Patient HX: SOB, increase oxygen requirement TECHNIQUE: Imaging protocol: Radiologic exam of the chest. Views: 1 view. COMPARISON: CR XR PORTABLE CHEST AP 08/21/2023 11:11 AM FINDINGS: Tubes, catheters and devices: There is a right internal jugular central venous catheter present tip lies at the distal superior vena cava in good position. Lungs: There is mild pulmonary venous congestion. There is diffuse interstitial edema. Underlying inflammatory or infectious process not excluded. Consolidation of the right lower lobe of the lung acute pneumonia is not excluded. Pleural spaces: There is blunting of the costophrenic angles bilaterally. Small pleural effusions cannot be excluded. No evidence of pneumothorax. Heart/Mediastinum: The heart is enlarged. There is prominence of the mediastinum. Bones/joints: The skeletal structures and soft tissues show no evidence of fracture or other acute processes. Soft tissues: The soft tissues of the extrathoracic region are unremarkable. IMPRESSION: 1. Probable congestive heart failure. Underlying inflammatory or infectious process not excluded. 2. Consolidation of the right lower lobe of the lung acute pneumonia is not excluded. 3. There is blunting of the costophrenic angles bilaterally. Small pleural effusions cannot be excluded. Dictated and Authenticated by: Ricardo Lora MD. Ordering:SHERMAN Moss MD
[2023-08-26 01:21] LABS: ALT 52 U/L (16-63); AST 41 U/L (15-37); Albumin 1.7 g/dL (3.4-5.0); Alkaline Phosphatase 99 U/L (46-116); BUN 22 mg/dL (7-18); Bilirubin, Total 0.8 mg/dL (0.2-1.0); CREATININE 0.8 mg/dL (0.70-1.30); Chloride 100 mmol/L (98-107); Estimated GFR 92.29 (mL/min/1.73m2); Glucose 193 mg/dL (74-106); NT-proBNP 754 pg/mL (<300); Potassium 3.1 mmol/L (3.5-5.1); Sodium 136 mmol/L (136-145); Total Protein 5.8 g/dL (6.4-8.2)
--- NOTE | 2023-08-26 02:01 | W.EVENT ---
Date of service: 08/26/23 Time of Service: 02:01 Event Note: I was called by the nurse that the patient was acutely short of breath with hypoxemia and not previously been a problem with the patient on room air. He was tachypneic was given a nebulizer treatment with no labs done on 08/25/2023 which were ordered stat with portable chest x-ray. Patient was on O2 at 2 L/min per nasal cannula and oxygenating well. He has been ambulating with assist and more alert earlier in the day. He was noted to be more edematous with anasarca does have known ascites with gallbladder necrotizing pancreatitis and question of right pneumonia and abscess on CT. He does have a CT of the abdomen ordered today with surgery following and considering cholecystostomy at least for the patient is appearing to stutter and worsen and should be considered for transfer to tertiary care center high risk anesthesia with cholecystectomy needed. He is not stable for this surgery locally. He never had an MRCP. He has been stuttering along with these problems and probable cholecystitis with gallstone pancreatitis now necrotizing pancreatitis since early August 2023. When I approached patient he was in bed with his head at a 45 degree angle still slightly tachypneic but arousable and attempting to answer questions. Does have a brother who lives in [place], [place] but no other close family. He is a full code. This probably needs to be rediscussed with family with the patient not doing well. He denies any chest pain but is uncomfortable with his abdominal swelling. There is think that his abdominal swelling has worsened and his edema is due to over his upper extremities and extremities as well as his abdomen. He has anasarca mention. Lungs do reveal coarse crackles of the right lung field with patient examined supine. Heart exam reveals slight tachycardia with regular rhythm. He does have pitting edema over his upper extremities and abdomen as well as lower extremities. He is not cyanotic. His abdomen is distended without guarding or rebound but uncomfortable to deep palpation. Lab review with CBC stable and WBCs, elevated and H&H low but stable, CMP with elevated AST and ALT as well as total bili with low albumin and protein status stable. VBG does reveal essentially normal pH of 7.39 and base excess elevated 4. Potassium was low at 3.1 with potassium repletion to be given through his IJ central line. BNP was slightly elevated at 754 up from 493. Portable chest x-ray revealed CHF with underlying inflammatory process not excluded with consolidation right lower lobe of the lung with acute pneumonia not excluded. With blunting of the costophrenic angle bilaterally small bilateral pleural effusions. Assessment/plan: This a 77-year-old gentleman [place] [facility] [place] for probable gallbladder pancreatitis and return to rehab center but was rehospitalized at this institution with recurrent symptoms. He appears now worsening inflammatory process with right lower lobe pneumonia and probable cholecystitis with recurrent gallstone pancreatitis now with necrotizing pancreatitis. He never did have an MRCP repeated and was not transfer for ERCP. Surgery has been consulted but states that the patient is not a candidate for cholecystectomy locally with his unstable medical condition and progressing pneumonia and now CHF. He has had a positive fluid balance for the last several days with IV antibiotics. He had some problems with urine retention had a Webb catheter up to yesterday but the Webb has been replaced patient given 40 mg of IV Lasix for fluid overload. His labs are not normal but stable and his clinical status looks to be more fluid overloaded than anything at this time. He does need some intervention for his inflammatory process which may require either transfer to tertiary care center or at least transfer for interventional radiology to do percutaneous drainage with his cholecystitis and question of abscess forming in the right upper abdomen and there being a question of empyema on last CT. He has a repeat CT of the abdomen and pelvis scheduled today. His CHARANJIT has cleared and his creatinine is normal. Patient does have a brother who is his closest family and there should be some discussion of long-term care plans and CODE STATUS with the patient decompensated and appearing chronically ill prior to this event. Surgery will be high risk. Time Spent with Patient Time spent in critical care(minutes): 30 Time Spent Included: Coordination of care, Chart review, Documenting critically ill care and Time at immediate bedside
[2023-08-26] MEDS: POTASSIUM CHLORIDE 20 MEQ/100 ML BAG 50 MEQ IVINF ×2 (02:43→05:22)
[2023-08-26] MEDS: HYDROmorphone 2 MG/ML SYR IVP ×3 (04:22→12:14)
[2023-08-26] MEDS: Heparin 5,000 UNITS/ML VIAL 5000 UNITS SC (05:22)
--- NOTE | 2023-08-26 05:39 | NUR.NOTE ---
Nursing Note: Per previous nurse, patient reported increased shortness of breath and fatigue at 20:30. Pt in the tripod position, tachypneic, utilizing accessory muscles. Vital signs obtained, oxygen saturation 84% on room air. Pt placed on 2L/min NC with recovery to 92%, pt did not tolerate NC, placed on 2L/min oxymask, tolerated better per patient. Pt notably tachypneic at midnight, endorsed acute pain to abdomen (rated 8/10). Abdomen tender, distended and taught. Bowel sounds hyperactive at this time. Pt denies nausea. Pt respirations 40/minute, shallow, with audible expiratory wheezing/crackles. Coarse crackles auscultated to bilateral lower lobes anteriorly/posteriorly, more so present on the right than left. Pt oxygen saturation 90-94% on 2L/min oxymask. RT to bedside to administer PRN nebulizer treatment per JUN. Pt heart rate 100-120 at this time. Pt denies chest pain or pressure at this time. Blood pressure WNL, systolic varying between 120-130. Pt noted to have +3 pitting edema to BLE, +2 pitting edema to BUE with serus drainage from previous blood draw/PIV sites, and low urine output since removal of madsen catheter per previous shift. Patient bladder scanned for >400cc. CC notified, made aware, labs/portable chest x-ray, 40mg IVP lasix, madsen catheter insertion, and continuous telemetry monitoring ordered at this time. Pt serum K+ 3.1, 1 bag 20mEq K+ administered, second infusing at this time for replenishment. Pt respirations 24-28/min at this time, oxygen saturation WNL, 1200cc clear yellow urine output from madsen catheter, pain level decreased to 4/10 at this time. Pt restful with eyes closed at this time.
[2023-08-26] MEDS: Breeza Beverage 473 ML BTL PO ×2 (07:24→07:25)
[2023-08-26] MEDS: Omnipaque 350 MG/ML 50 ML BTL PO (07:25)
[2023-08-26] MEDS: Tamsulosin 0.4 MG CAPCR PO (07:46)
[2023-08-26] MEDS: Pantoprazole 20 MG TABCR PO (07:46)
[2023-08-26] MEDS: Creon, Lipase 24,000 CAPCR 1 CAP PO (07:46)
[2023-08-26] MEDS: Multivitamin TAB 1 TAB PO (07:46)
[2023-08-26] MEDS: LINEZOLID 600 MG/300 ML BAG 300 MG IVPB (07:54)
[2023-08-26 08:48] LABS: Lactate 1.9 mmol/L (0.6-1.4)
[2023-08-26] MEDS: Normal Saline - Diluent 50 ML VIAL IJ (08:58)
[2023-08-26] MEDS: Omnipaque 350 MG/ML 100 ML BTL IJ (08:59)
[2023-08-26 09:06] LABS: HCT 37.9 % (40.0-50.0); HGB 12.6 g/dL (13.5-17.5); MCH 31.3 pg (27.0-33.0); MCHC 33.2 % (32.0-36.0); MCV 94 fL (80-95); MPV 11.3 fL (8.0-11.0); Platelet Count 165 10^3/uL (130-400); RBC 4.03 10^6/uL (4.36-5.78); RDW 12.3 % (11.8-14.1); WBC 8.94 10^3/uL (4.4-10.8)
[2023-08-26 09:14] LABS: ALT 47 U/L (16-63); AST 33 U/L (15-37); Albumin 1.7 g/dL (3.4-5.0); Alkaline Phosphatase 95 U/L (46-116); Anion Gap 9.3 mmol/L (3-11); BUN 18 mg/dL (7-18); Bilirubin, Total 0.9 mg/dL (0.2-1.0); CO2 29.7 mmol/L (21.0-32.0); CREATININE 0.9 mg/dL (0.70-1.30); Calcium 7.8 mg/dL (8.5-10.1); Chloride 98 mmol/L (98-107); Estimated GFR 89.07 (mL/min/1.73m2); Glucose 207 mg/dL (74-106); Magnesium 1.6 mg/dL (1.8-2.4); Potassium 3.4 mmol/L (3.5-5.1); Sodium 137 mmol/L (136-145)
--- NOTE | 2023-08-26 09:18 | PT.INNT ---
Date of service: 08/26/23 Time of Service: 09:18 PT Notes Visit Reasons: Sepsis,pneumonia,pancreatitis Inpatient Physical Therapy Treatment Note [facility] Date: 08/27/2023 Attempted to see Medhat while he was absent from room for a CT scan. Did speak with Nurse Leo regarding patient, while he was having scan, and she indicated that Medhat was not feeling well this morning and did not feel he was up for PT services at this time. It was agreed to hold PT activity until tomorrow, if patient is able to tolerate.
--- NOTE | 2023-08-26 09:43 | DI.CT_ITS ---
Exam(s) CT ABDOMEN PELVIS W EXAM: CT ABDOMEN PELVIS W CLINICAL HISTORY: Possible abscess /severe pancreatitis. TECHNIQUE: Imaging Protocol: Axial computed tomography images with coronal and sagittal reformatted images were created and reviewed CONTRAST MATERIAL: Intravenous: Omnipaque-350 100cc Oral: Yes. Oral contrast was also administered for bowel opacification. COMPARISON: CT CT ABDOMEN PELVIS W from 08/22/2023 FINDINGS: VISUALIZED LUNG BASES: Persistent infiltrate in both lung bases and small bilateral pleural effusions .. ABDOMEN: There is prominent ascites in the abdomen pelvis related to the pancreatic findings. LIVER: The amount of perihepatic ascites has increased. There no focal lesions nor evidence of absce ss in the liver. No dilated intrahepatic ducts. GALLBLADDER/BILIARY: Gallstone noted in the gallbladder lumen. Gallbladder is not distended nor obvi ously edematous. CBD is not dilated. PANCREAS: Severe pancreatitis again noted abnormal heterogeneous enhancement of pancreatic parenchyma and with absence of enhancement of the pancreatic neck region and body-neck junction, consistent wit h necrotizing pancreatitis. Large amount of fluid around the pancreas is again noted and presently e xhibiting some mild wall enhancement suggesting possible abscess development extends from the region of the head of the pancreas 2 in below the spleen into the left pericolic gutter.. This fluid collec tion measures approximately 24 cm wide by 8 cm AP and ex cans caudally into the left iliac fossa for a cephalocaudal distance of approximately 24 cm, this in addition to the not in capsulated ascites in to the abdomen and pelvis. There does not appear to be gas within this collection. . SPLEEN: Spleen is not enlarged. No obvious intrasplenic lesions. No intrasplenic collection. The s plenic vein is patent as it runs through the the posterior aspect of the above described collection. However, the splenic vein lumen is significantly narrowed behind necrotic part of the pancreas but t here does not appear to be intraluminal thrombus within the portal vein confluence and the superior m esenteric vein also appears patent as do the intrahepatic portal veins. ADRENALS: There are no significant adrenal masses. KIDNEYS:No cysts evident. No solid renal masses. No calculi nor hydronephrosis.. ABDOMINAL AORTA: Atherosclerotic and with infrarenal abdominal aortic aneurysm again noted. Maximum measurement is 5.2 cm. Common iliac arteries are calcified but not enlarged. LYMPH NODES:There is no retroperitoneal nor paraaortic adenopathy. ABDOMINAL WALL: No evidence of significant anterior abdominal wall nor inguinal hernia. There is an element of relatively symmetrical anasarca over the flanks. GI: There is no evidence of bowel obstruction, free air, nor abscess. PELVIS: GI: No evidence of appendicitis.No evidence of sigmoid diverticulitis. LYMPH NODES: There is no intrapelvic nor inguinal adenopathy. REPRODUCTIVE: Prostate not enlarged. URINARY BLADDER: Webb catheter in the urinary bladder. Bladder not distended. OSSEOUS: No fractures and no significant osseous lesions. IMPRESSION: 1. 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 The size of the collection which exhibits a thin enhancing wall measures approxi mately 24 cm wide by 8 cm AP and extends for a distance of 24 cm down the left paracolic gutter into the pelvis. There is also other free fluid-ascites which does not exhibit peripheral enhancement but which is increasing when compared to prior study (such as pericolic ascites). 2. Recommend consultation with interventional radiology as this patient may benefit from percutaneous drainage catheter(s). 3. Infrarenal abdominal aortic aneurysm with maximum external diameter 5.2 cm. No rupture. Common i liac arteries are calcified but not enlarged. 4. Cholelithiasis noted. RADIATION DOSE DELIVERED: 1,566.34mGy.cm Total DLP DATA REPOSITORY: All CT scans at this facility are submitted to the National Radiology Data Registry (NRDR) Dose Index Registry (DIR) with the [employer] (ACR). RADIATION OPTIMIZATION: All CT scans at this facility use at least one of these dose optimization te chniques: automated exposure control; mA and/or kV adjustment per patient size (includes targeted exa ms where dose is matched to clinical indication); or iterative reconstruction.
--- NOTE | 2023-08-26 10:04 | DI.VRAD_ITS ---
Addendum created by Shubham Turner MD on 08/26/2023 10:21:59 AM EDT: THIS REPORT CONTAINS FINDINGS THAT MAY BE CRITICAL TO PATIENT CARE. The findings were verbally communicated via telephone conference with SMITA VILLAR at 10:21 AM EDT on 08/26/2023. The findings were acknowledged and understood. Initial report created on 08/26/2023 10:03:57 AM EDT: PROCEDURE INFORMATION: Exam: CT Abdomen And Pelvis With Contrast Exam date and time: 08/26/2023 9:22 AM Age: 77 years old Clinical indication: Vomiting and other: Poss abscess and severe pancreatitus TECHNIQUE: Imaging protocol: Computed tomography of the abdomen and pelvis with contrast. Radiation optimization: All CT scans at this facility use at least one of these dose optimization techniques: automated exposure control; mA and/or kV adjustment per patient size (includes targeted exams where dose is matched to clinical indication); or iterative reconstruction. Contrast material: OMNI 350; Contrast volume: 100 ml; Contrast route: INTRAVENOUS (IV); Other contrast: Oral, omni w/breeza, 950; COMPARISON: CT ABDOMEN PELVIS W 08/22/2023 4:23 PM FINDINGS: Pleural spaces: Small bilateral pleural effusions. Liver: Normal. No mass. Gallbladder and bile ducts: Gallstone in the gallbladder. Pancreas: Again noted is lack of enhancement of the neck and body of the pancreas. For example series 4, image 38 -39. This may represent necrotizing pancreatitis. . There are extensive inflammatory changes and fluid around the pancreas. There is enhancing ngo seen anteriorly which may indicate abscess. The collection measures 18 x 9 cm on series 4, image 39. Fluid collections extend into the left paracolic gutter and may be continuous with the fluid around the pancreas. Fluid collection around the pancreas extends into the pelvis. Spleen: Normal. No splenomegaly. Adrenal glands: Normal. No mass. Kidneys and ureters: Normal. No hydronephrosis. Stomach and bowel: Unremarkable. No obstruction. No mucosal thickening. Appendix: No evidence of appendicitis. Intraperitoneal space: Large amount of Ascites throughout the abdomen and pelvis. 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 Unruptured aneurysm of the infrarenal aorta a 5.29 x 4.95 cm.. Lymph nodes: Unremarkable. No enlarged lymph nodes. Urinary bladder: Webb catheter in the bladder Reproductive: Unremarkable as visualized. Bones/joints: Unremarkable. No acute fracture. Soft tissues: Unremarkable. IMPRESSION: 1. Again noted is lack of enhancement of the neck and body of the pancreas. For example series 4, image 38 -39. This may represent necrotizing pancreatitis. . 2. There are extensive inflammatory changes and fluid around the pancreas. There are enhancing ngo seen anteriorly which may indicate infection/ abscess. The collection measures 18 x 9 cm on series 4, image 39. Fluid collections extend into the left paracolic gutter and may be continuous with the fluid around the pancreas. Fluid collection around the pancreas extends into the pelvis. 3. Small bilateral pleural effusions. 4. 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 5. Large amount of Ascites throughout the abdomen and pelvis. 6. Unruptured aneurysm of the infrarenal aorta a 5.29 x 4.95 cm.. 7. Gallstone in the gallbladder. Dictated and Authenticated by: Shubham Turner MD. Ordering:ALDEN Leo MD
--- NOTE | 2023-08-26 10:30 | RT.EKG_ITS ---
APPROVED REPORT Exam: Resting ECG Reason for Exam: ST changes Patient Location: I HR:108 bpm ECG Measurements Heart Rate 108 AXIS TN 116 P 31 QRSd 95 QRS 22 QT 344 T 22 QTc 461 Conclusion Sinus tachycardia...rate> 99 Atrial premature complexes...SV complexes w/ short R-R intvls Left atrial enlargement...P, P'>60mS, <-0.15mV V1 Minimal ST depression, lateral leads...ST <-0.04mV, I aVL V5 V6
[2023-08-26 11:20] LABS: Troponin I < 50 ng/L (< or =60)
--- NOTE | 2023-08-26 11:50 | PGE_ITS ---
Date of Service Date of service: 08/26/23 Time of Service: 11:35 Assessment and Plan Assessment and plan (1) Necrotizing pancreatitis: Status: Acute Assessment and plan: 77-year-old man who has multiple, severe and life?threatening medical conditions occurring simultaneously. Though he is hemodynamically stable at the bedside, to me he appears critically ill from a clinical standpoint. He is very frail and appears malnourished. His abdominal exam is consistent with the known process occurring inside of him. He clearly has ongoing, recurrent pancreatitis which is probably acute on chronic from the history I have read in his chart. I reviewed his CT scan from this morning which shows persistence and further development of the same process from a few days ago. He is either developing a pseudocyst or an abscess in response to this ongoing pancreatitis which does appear to have a necrotizing component radiographically. There is a significant amount of intra-abdominal ascites. Whether or not he has ongoing pulmonary disease as well is unclear but he may have pneumonia on top of the intra-abdominal problems. A dedicated CT scan of the chest is indicated at some point to better assess the possibility of an empyema which was seen a few days ago. Overall assessment and plan: The patient is critically ill in my opinion and I discussed with the hospitalist team about setting up transfer for him to a tertiary facility. I recommend starting a carbapenem antibiotic for the ongoing pancreatic necrosis that appears to be developing into a collection. Current strategies on necrotizing pancreatitis are somewhat debatable with some recent data suggesting that delaying surgical/procedural intervention in these cases may have better outcomes and may decrease the number of patients who require intervention. Managing necrotizing pancreatitis is beyond the capabilities of a [facility] critical access hospital and I defer to the tertiary center to make this judgment call on managing the peripancreatic collection that is developing. Certainly caution should be exercised before draining this. His gallbladder may be the underlying culprit that caused the pancreatitis, but it is not the current or active life?threatening problem. He does not need to have any procedure done on the gallbladder at this time. Removing his gallbladder does need to be considered at some point in the future when he has recovered from the pneumonia and pancreatitis to avoid another episode/recurrence. He is very frail and even after he has recovered, he will be a high?risk candidate for surgery. Gallbladder surgery discussion is deferred at this time and can resume after he has recovered and has stabilized. I discussed all of this with the hospitalist team in person. Subjective Subjective Interval history since last seen: At the bedside the patient is asleep. He is arousable. States that his abdomen still hurts. It is hard for him to breathe. Nothing is better. He is unsure if anything is worse. He rates the pain as severe. Had the CT scan about an hour ago or so. Exam Narrative Exam Narrative: General: Lethargic, uncomfortable, frail, weak and malnourished Neuro: Alert and oriented x 3 Psych: Downcast mood and affect, too fatigued to discuss insight or understanding Abdomen: Soft, distended, very tender in the epigastrium and bilateral upper quadrants. No tenderness in the bilateral lower quadrants. Though he is tender, there are no peritoneal signs. Objective Last Vital Signs Temp 98.4 F 08/26/23 10:37 Pulse 107 H 08/26/23 10:37 Resp 22 08/26/23 10:37 BP 109/80 08/26/23 10:37 Pulse Ox 93 08/26/23 10:37 Laboratory Results - last 24 hr 08/25/23 08/26/23 08/26/23 17:53 00:30 01:04 WBC 10.11 RBC 3.99 L Hgb 12.4 L Hct 37.3 L MCV 94 MCH 31.1 MCHC 33.2 RDW 12.2 Plt Count 180 MPV 11.1 H Immature Gran % 0.0 Neutrophils % 93.0 Lymphocytes % 3.0 Monocytes % 3.0 Eosinophils % 0.0 Basophils % 0.0 Metamyelocytes % 1 Nucleated RBC % 0.2 Absolute Neutrophils 9.40 H Absolute Lymphocytes 0.30 L Absolute Monocytes 0.30 Absolute Eosinophils 0.00 Absolute Basophils 0.00 RBC Morphology Normal VBG pH 7.39 VBG pCO2 47 VBG pO2 43 VBG HCO3 28 VBG Total CO2 26 VBG O2 Saturation 78 VBG Base Excess 4 H VBG Lactate Sodium 136 Potassium 3.1 L Chloride 100 Carbon Dioxide 28.0 Anion Gap 8.0 BUN 22 H Creatinine 0.8 Est GFR (CKD-EPI 2020) 92.29 Glucose 193 H Calcium 8.0 L Magnesium Total Bilirubin 0.8 AST 41 H ALT 52 Alkaline Phosphatase 99 Troponin I < 50 NT-Pro-B Natriuret Pep 754 H Total Protein 5.8 L Albumin 1.7 L 05/08/26/23 08/26/23 08:40 08:40 10:58 WBC 8.94 RBC 4.03 L Hgb 12.6 L Hct 37.9 L MCV 94 MCH 31.3 MCHC 33.2 RDW 12.3 Plt Count 165 MPV 11.3 H Immature Gran % Neutrophils % Lymphocytes % Monocytes % Eosinophils % Basophils % Metamyelocytes % Nucleated RBC % Absolute Neutrophils Absolute Lymphocytes Absolute Monocytes Absolute Eosinophils Absolute Basophils RBC Morphology VBG pH VBG pCO2 VBG pO2 VBG HCO3 VBG Total CO2 VBG O2 Saturation VBG Base Excess VBG Lactate 1.9 H Sodium 137 Potassium 3.4 L Chloride 98 Carbon Dioxide 29.7 Anion Gap 9.3 BUN 18 Creatinine 0.9 Est GFR (CKD-EPI 2020) 89.07 Glucose 207 H Calcium 7.8 L Magnesium 1.6 L Cancelled Total Bilirubin 0.9 AST 33 ALT 47 Alkaline Phosphatase 95 Troponin I < 50 NT-Pro-B Natriuret Pep Total Protein 6.0 L Albumin 1.7 L Time Spent with Patient Time Spent with Patient: 35-49 minutes Time was spent: preparing to see the patient(eg.review tests), obtaining and/or reviewing separately otained hiistory, referring, communicating with other health assisted living care manager and indepentently interpreting results
[2023-08-26] MEDS: Insulin Aspart 300 UNITS/3 ML PEN SC (12:07)
--- NOTE | 2023-08-26 13:30 | RT.EKG_ITS ---
APPROVED REPORT Exam: Resting ECG Reason for Exam: tachy Patient Location: I HR:127 bpm ECG Measurements Heart Rate [address] [id number] P [id number] QRSd 97 QRS 20 QT 304 T 9 QTc 442 Conclusion Atrial fibrillation...V-rate 105-152, irreg A-activity
[2023-08-26 14:03] LABS: BE (Venous) 6 mmol/L (-2-3); HCO3 (Venous) 31 mmol/L (23-28); O2 Sat (Venous) 72 %; TCO2 (Venous) 28 mmol/L (24-29); pCO2 (Venous) 53 mmHg (41-51); pH (Venous) 7.38 (7.31-7.41); pO2 (Venous) 39 mmHg
[2023-08-26 14:08] LABS: HGB 12.7 g/dL (13.5-17.5); MCHC 33.4 % (32.0-36.0); MCV 93 fL (80-95); MPV 11.4 fL (8.0-11.0); Platelet Count 230 10^3/uL (130-400); RDW 12.5 % (11.8-14.1); RDW-SD 42.7 fL; WBC 12.93 10^3/uL (4.4-10.8)
[2023-08-26 14:20] LABS: Absolute Lymphocyte Count 0.26 10^3/uL (1.2-3.4); Absolute Monocyte Count 0.13 10^3/uL (0.1-0.8); Absolute Neutrophil Count 12.54 10^3/uL (1.2-6.7); Bands % 4 %; Diff Comment Manual Differential; RBC Morphology Normal
[2023-08-26 14:25] LABS: ALT 49 U/L (16-63); AST 43 U/L (15-37); Albumin 1.7 g/dL (3.4-5.0); Alkaline Phosphatase 101 U/L (46-116); Anion Gap 4.2 mmol/L (3-11); BUN 17 mg/dL (7-18); Bilirubin, Total 0.8 mg/dL (0.2-1.0); CO2 31.8 mmol/L (21.0-32.0); Calcium 7.7 mg/dL (8.5-10.1); Chloride 98 mmol/L (98-107); Estimated GFR 78.49 (mL/min/1.73m2); Glucose 177 mg/dL (74-106); Potassium 3.1 mmol/L (3.5-5.1); Sodium 134 mmol/L (136-145); Total Protein 5.8 g/dL (6.4-8.2); Troponin I < 50 ng/L (< or =60)
--- NOTE | 2023-08-26 14:32 | DSE_ITS ---
Date of service: 08/26/23 Time of Service: 14:32 DS: Diagnosis Discharge Diagnosis (1) Necrotizing pancreatitis: Status: Acute Asessment and Plan: Patient initially presented with right upper quadrant pain that was ultimately determined to be due to necrotizing pancreatitis. He had recently been at [facility] for gallstone pancreatitis but did not require intervention as no retained stone was noted only dilated duct. However, while at [facility] patient was initially hypotensive due to septic shock and was on Levophed he was also treated with Zosyn. He had serial CTs that ultimately on the morning of 08/26/2023 did show worsening necrotizing pancreatitis, significant abdominal ascites, and a 18 x 9 cm fluid collection that may be pancreatic abscess. Discussion was had with general surgery and patient was switched to imipenem but shortly after patient had a rapid response due to SVT. He was given adenosine which showed the patient was in A-fib RVR for which she received 2 subsequent doses of 5 mg of Lopressor and was ultimately placed on an esmolol drip. After which time he was hypotensive with multiple mean arterial pressures less than 65 and is now on a Levophed drip. Patient has since been stabilized and has heart rate in the 120s to 140s, and multiple mean arterial pressures in the low 70s. Ultimately, discussion was had with [facility] critical care physician who accepted patient for transfer. Discharge Plan Disposition Patient Disposition: Transfer-Acute Inpatient Care Specific Acute In Facility: [facility] Condition: Deteriorating Discharge Details Reason For Visit: Sepsis,Pneumonia,Pancreatitis Admit Date/Time: 08/21/23 11:57 Admit Provider: Tommy Meier Attending Provider: Tommy Meier Primary Care Provider: Joe Mckinnon Hospital Course Hospital Course: Patient initially presented with right upper quadrant pain that was ultimately determined to be due to necrotizing pancreatitis. He had recently been at [facility] for gallstone pancreatitis but did not require intervention as no retained stone was noted only dilated duct. However, while at [facility] patient was initially hypotensive due to septic shock and was on Levophed he was also treated with Zosyn. He had serial CTs that ultimately on the morning of 08/26/2023 did show worsening necrotizing pancreatitis, significant abdominal ascites, and a 18 x 9 cm fluid collection that may be pancreatic abscess. Discussion was had with general surgery and patient was switched to imipenem but shortly after patient had a rapid response due to SVT. He was given adenosine which showed the patient was in A-fib RVR for which she received 2 subsequent doses of 5 mg of Lopressor and was ultimately placed on an esmolol drip. After which time he was hypotensive with multiple mean arterial pressures less than 65 and is now on a Levophed drip. Patient has since been stabilized and has heart rate in the 120s to 140s, and multiple mean arterial pressures in the low 70s. Ultimately, discussion was had with [facility] critical care physician who accepted patient for transfer. Home Meds and New Rx's Prescriptions: No Action acetaminophen 325 mg capsule 325 mg PO ONCE PRN aspirin 81 mg tablet,delayed release (DR/EC) 81 mg PO DAILY atorvastatin 10 mg tablet 10 mg PO DAILY bisoprolol fumarate 5 mg tablet 5 mg PO DAILY hydromorphone [Dilaudid] 2 mg tablet 2 mg PO Q4H PRN lisinopril 10 mg tablet 10 mg PO DAILY Discharge Instructions Activity:: Activity as Tolerated Equipment/Supplies:: No Equipment Needed Diet:: As Tolerated Discharge Orders Discharge Orders: Discharge Order (Routine); Ordered 08/26/23 Ordered By: Morris Campos DS: Summary Time Spent with Patient providing and/or coordinating discharge services: Greater than 30 minutes Status at Discharge Functional status at discharge: bed bound Overall status at discharge: patient is not back to baseline Mental Status: mental status grossly normal Speech and Movement: speech and movement normal Mood: congruent mood Affect: normal affect Quality:SDOH Health Related Social Needs: No Data to Display Exam Narrative Exam Narrative: chronically ill appearing older gentleman laying in bed in moderate distress, awakens to painful stimuli, heart irregularly irregular, rate 120-140's, lungs diminished in bilateral bases with course breath sounds, abdomen significantly distended without rebounding or guarding Psych Mental Status: mental status grossly normal Speech and Movement: speech and movement normal Mood: congruent mood Affect: normal affect DS: Data Vitals/I&O Vitals and I&O: Vital Signs Temperature 99.7 F H 08/26/23 12:47 Temperature Source Temporal Artery Scan 08/26/23 12:47 Pulse 113 H 08/26/23 12:47 Pulse Rhythm Regular 08/26/23 11:10 Pulse 68 08/23/23 10:01 Respiratory Rate 24 08/26/23 12:47 Respiratory Effort Short of Breath, Labored, Grunting, Incrsd Work of Breathing 08/26/23 11:10 Respiratory Depth Shallow 08/26/23 11:10 Respiratory Pattern Tachypnea 08/26/23 11:10 Blood Pressure 117/68 08/26/23 12:47 Blood Pressure Mean 80 08/23/23 11:01 Blood Pressure Position Sitting 08/23/23 09:00 Pulse Oximetry 93 08/26/23 12:47 Oxygen Delivery Method Nasal Cannula 08/26/23 12:47 Oxygen Flow Rate 1 08/26/23 12:47 Pain Level 5 08/26/23 08:41 Comment RN informed vs 08/26/23 07:31 Comment Vasopressin decreased to 0.02 08/23/23 00:15 Arterial Mean 59 08/21/23 14:31 Intake & Output 08/25/23 08/26/23 08/26/23 17:59 05:59 17:59 Intake Total 800 / 800 740 / 1540 1100 / 1100 Output Total 750 / 750 1450 / 2200 1450 / 1450 Balance 50 / 50 -710 / -660 -350 / -350 Weight 198 lb 10.184 oz 199 lb 4.766 oz Intake: IV 400 / 400 740 / 1140 500 / 500 Oral 400 / 400 600 / 600 Output: Urine 750 / 750 1450 / 2200 1450 / 1450 Other: Urine Color Light Elizabeth Yellow Pale Urine Appearance Clear Clear Clear Urine Odor None Normal Comment Foamy Stool Size Small Smear Stool Characteristics Formed Soft Brown Brown Voiding Methods Bedside Commode Data Completed and Pending Labs on day of discharge: Labs from last 24 hours 08/26/23 08/26/23 08/26/23 13:53 10:58 08:40 WBC 12.93 H RBC 4.10 L Hgb 12.7 L Hct 38.0 L MCV 93 MCH 31.0 MCHC 33.4 RDW 12.5 Plt Count 230 MPV 11.4 H Immature Gran % 0.0 Neutrophils % 93.0 Band Neutrophils % 4 Lymphocytes % 2.0 Monocytes % 1.0 Eosinophils % 0.0 Basophils % 0.0 Metamyelocytes % Nucleated RBC % 0.0 Absolute Neutrophils 12.54 H Absolute Lymphocytes 0.26 L Absolute Monocytes 0.13 Absolute Eosinophils 0.00 Absolute Basophils 0.00 RBC Morphology Normal VBG pH 7.38 VBG pCO2 53 H VBG pO2 39 VBG HCO3 31 H VBG Total CO2 28 VBG O2 Saturation 72 VBG Base Excess 6 H VBG Lactate Sodium 134 L Potassium 3.1 L Chloride 98 Carbon Dioxide 31.8 Anion Gap 4.2 BUN 17 Creatinine 1.0 Est GFR (CKD-EPI 2020) 78.49 Glucose 177 H Calcium 7.7 L Magnesium Cancelled Total Bilirubin 0.8 0.9 AST 43 H 33 ALT 49 47 Alkaline Phosphatase 101 95 Troponin I < 50 < 50 NT-Pro-B Natriuret Pep Total Protein 5.8 L 6.0 L Albumin 1.7 L 1.7 L 08/26/23 08/26/23 08/26/23 08:40 01:04 00:30 WBC 8.94 10.11 RBC 4.03 L 3.99 L Hgb 12.6 L 12.4 L Hct 37.9 L 37.3 L MCV 94 94 MCH 31.3 31.1 MCHC 33.2 33.2 RDW 12.3 12.2 Plt Count 165 180 MPV 11.3 H 11.1 H Immature Gran % 0.0 Neutrophils % 93.0 Band Neutrophils % Lymphocytes % 3.0 Monocytes % 3.0 Eosinophils % 0.0 Basophils % 0.0 Metamyelocytes % 1 Nucleated RBC % 0.2 Absolute Neutrophils 9.40 H Absolute Lymphocytes 0.30 L Absolute Monocytes 0.30 Absolute Eosinophils 0.00 Absolute Basophils 0.00 RBC Morphology Normal VBG pH 7.39 VBG pCO2 47 VBG pO2 43 VBG HCO3 28 VBG Total CO2 26 VBG O2 Saturation 78 VBG Base Excess 4 H VBG Lactate 1.9 H Sodium 137 136 Potassium 3.4 L 3.1 L Chloride 98 100 Carbon Dioxide 29.7 28.0 Anion Gap 9.3 8.0 BUN 18 22 H Creatinine 0.9 0.8 Est GFR (CKD-EPI 2020) 89.07 92.29 Glucose 207 H 193 H Calcium 7.8 L 8.0 L Magnesium 1.6 L Total Bilirubin 0.8 AST 41 H ALT 52 Alkaline Phosphatase 99 Troponin I NT-Pro-B Natriuret Pep 754 H Total Protein 5.8 L Albumin 1.7 L 08/25/23 17:53 WBC RBC Hgb Hct MCV MCH MCHC RDW Plt Count MPV Immature Gran % Neutrophils % Band Neutrophils % Lymphocytes % Monocytes % Eosinophils % Basophils % Metamyelocytes % Nucleated RBC % Absolute Neutrophils Absolute Lymphocytes Absolute Monocytes Absolute Eosinophils Absolute Basophils RBC Morphology VBG pH VBG pCO2 VBG pO2 VBG HCO3 VBG Total CO2 VBG O2 Saturation VBG Base Excess VBG Lactate Sodium Potassium Chloride Carbon Dioxide Anion Gap BUN Creatinine Est GFR (CKD-EPI 2020) Glucose Calcium Magnesium Total Bilirubin AST ALT Alkaline Phosphatase Troponin I < 50 NT-Pro-B Natriuret Pep Total Protein Albumin Preliminary micro results at discharge 08/21/23 12:45 Blood Culture - Preliminary Blood NO GROWTH 96 HOURS PFSH All Active Problems (Updated 08/25/23 @ 08:07 by Tommy Meier MD) Discharge planning issues (Acute) Urinary retention (Acute) Hyperglycemia (Acute) Respiratory failure with hypoxia (Acute) Pulmonary edema (Acute) Hypoalbuminemia (Acute) Hypocalcemia (Acute) Hypokalemia (Acute) Anemia (Chronic) Atelectasis of both lungs (Acute) Gall stone pancreatitis (Acute) Necrotizing pancreatitis (Acute) Tobacco dependence (Acute) Pancreatitis (Chronic) Medical History Parkinsonism PSVT (paroxysmal supraventricular tachycardia) PTSD (post-traumatic stress disorder) Obstructive sleep apnea Depression Hyperlipidemia COPD (chronic obstructive pulmonary disease) Abdominal aortic aneurysm Social History Smoking/Tobacco Use Status: Current-Occasional Smoking risk assessment performed?: Yes Alcohol Intake: never Drug use: Never Substance use type: does not use Housing: other Time Spent with Patient Time Spent with Patient: <45 minutes Time was spent: preparing to see the patient(eg.review tests), obtaining and/or reviewing separately otained hiistory, ordering medications,tests, procedures, referring, communicating with other health clinical care coordinator, indepentently interpreting results, counseling the patient and care coordination
--- NOTE | 2023-08-26 14:49 | PDOC.CMDIS ---
Date of service: 08/26/23 Time of Service: 14:50 LACE Index Scoring Tool Questions: Length of Stay (in days): 4 - 6 Was the patient admitted via the E.D.?: Yes Comorbidities: Chronic Pulmonary Disease E.D. Visits: 1 Answers: Total Score: 10 Risk of Readmission: High Risk Care Management Discharge Plan Reason for Hospitalization: Sepsis, pneumonia Discharge Plan: e[facility] had a CT scan this morning which showed worsening necrotizing pancreatitis with a new fluid collection that may be a pancreatic abscess. He later went into atrial fibrillation with RVR as high as 200 bpm. A rapid response was called and he was transferred to the ICU. [facility] has been contacted and have accepted [facility] for transfer.He will transport via EMS coordinated by nursing filtration supervisor. Patient/Family Education Needs: expectations, limitations SDOH Health Related Social Needs: No Data to Display
== END 2023-08-26 17:15 | disposition short-term general hospital (02) | DRG 871 ==
LOC: ER 12:17 → ICU 12:59 → MS 08-23 15:46 → ICU 08-26 14:25
PROVIDERS: Family Medicine; Student in an Organized Health Care Education/Training Program; Admitting Provider Internal Medicine; Emergency Provider Student in an Organized Health Care Education/Training Program; PCP Family Medicine; Visit Provider Internal Medicine
DX: A41.9 Sepsis, unspecified organism; J18.9 Pneumonia, unspecified organism; R65.21 Severe sepsis with septic shock; J96.01 Acute respiratory failure with hypoxia; J81.0 Acute pulmonary edema; K85.12 Biliary acute pancreatitis with infected necrosis; N17.9 Acute kidney failure, unspecified; J98.11 Atelectasis; I47.10 Supraventricular tachycardia, unspecified; R18.8 Other ascites; K80.10 Calculus of gallbladder with chronic cholecystitis without obstruction; E46 Unspecified protein-calorie malnutrition; J43.2 Centrilobular emphysema; I71.43 Infrarenal abdominal aortic aneurysm, without rupture; D64.9 Anemia, unspecified; E87.6 Hypokalemia; E83.51 Hypocalcemia; E88.09 Other disorders of plasma-protein metabolism, not elsewhere classified; F17.210 Nicotine dependence, cigarettes, uncomplicated; G20.C Parkinsonism, unspecified; G47.33 Obstructive sleep apnea (adult) (pediatric); E78.5 Hyperlipidemia, unspecified; R33.9 Retention of urine, unspecified; R73.9 Hyperglycemia, unspecified; F43.10 Post-traumatic stress disorder, unspecified; F32.A Depression, unspecified; R74.01 Elevation of levels of liver transaminase levels; I50.9 Heart failure, unspecified
CPT/HCPCS: 36640; 36620; 00123; 36415; 36556; 36591; 51702; 71275; 76604; 80053; 80061; 82805; 83690; 83721; 84145; 85027; 87040; 87449; 87637; 93005; 93308; 96361; 96365; 96366; 96367; 96368; 97162; 97530; 99223; 99231; 99232; 99291; 71045; 74174; 74177; 80202; 81003; 81015; 82330; 83036; 83605; 83735; 83880; 84484; 85025; 87070; 87086; 87205; 87581; 87899; 93010; 94640; 94760; 99233; 99238; J0456; J1170; J1644; J1720; J1815; J1940; J2020; J2470; J2543; J2598; J3372; J3480; J3490; J7620; Q9967

== ENCOUNTER → 2023-08-22 08:35 | Outpatient (BNVA) | payer MEDICARE, SELFPAY | PROVIDERS: PCP Family Medicine; Referring Provider Family Medicine; Visit Provider Student in an Organized Health Care Education/Training Program ==